=== PATIENT | female | born 1975 | race Caucasian/White ===

== ENCOUNTER 2016-04-27 15:55 | Emergency (ER) | payer MEDICAID ==
[2016-04-27] MEDS ORDERED: SODIUM CHLORIDE 0.9% 1,000 ML IV ONE (16:10)
[2016-04-27] MEDS ORDERED: ONDANSETRON 4 MG/2 ML VIAL IVP STA (16:50)
[2016-04-27] MEDS ORDERED: ONDANSETRON 4 MG/2 ML VIAL ONE (16:55)
== END 2016-04-27 18:05 | disposition home or self-care (01) ==
DX: R11.2 Nausea with vomiting, unspecified (principal)

== ENCOUNTER 2016-11-30 08:00 | Outpatient (CLI) | payer MEDICAID ==
[2016-11-30 19:27] LABS: BASOPHILS # (AUTO) 0.1 10^3/uL (0.0-0.1); BASOPHILS % (AUTO) 0.7 %; EOSINOPHILS # (AUTO) 0.2 10^3/uL (0.0-0.7); EOSINOPHILS % (AUTO) 2.7 %; HCT - HEMATOCRIT 37.2 % (37.0-47.0); HGB - HEMOGLOBIN 12.5 g/dL (12.0-16.0); LYMPHOCYTES % (AUTO) 24.9 %; MEAN CORPUSCULAR HGB CONC 33.5 g/dL (32.0-36.0); MEAN CORPUSCULAR VOLUME 83.7 fL (81.0-99.0); MEAN PLATELET VOLUME 9.2 fL (7.9-10.8); MONOCYTES # (AUTO) 0.4 10^3/uL (0.0-1.0); NEUTROPHILS # (AUTO) 5.4 10^3/uL (1.5-6.6); NEUTROPHILS % (AUTO) 66.7 %; RED BLOOD COUNT 4.45 10^6/uL (4.20-5.40); RED CELL DISTRIBUTION WIDTH 14.5 % (12.0-15.0); UNCORRECTED WHITE BLOOD COUNT 8.1 x10^3/uL; WHITE BLOOD COUNT 8.1 x10^3/uL (4.8-10.8)
[2016-11-30 19:49] LABS: ALBUMIN/GLOBULIN RATIO 1.3 (1.0-2.2); BILIRUBIN,TOTAL 0.2 mg/dL (0.2-1.0); BUN - BLOOD UREA NITROGEN 13 mg/dL (6-20); CALCIUM 8.5 mg/dL (8.5-10.3); CARBON DIOXIDE - CO2 26 mmol/L (21-32); CHLORIDE 106 mmol/L (101-111); CHOL/HDL RATIO 3.3 (<4.4); CHOLESTEROL 178 mg/dL; CREATININE 0.8 mg/dL (0.4-1.0); GFR - MDRD 80 (>89); GLUCOSE 101 mg/dL (70-100); HDL CHOLESTEROL 54 mg/dL; LDL/HDL RATIO 1.6 (<4.4); POTASSIUM 3.8 mmol/L (3.5-5.0); SODIUM 139 mmol/L (135-145); TOTAL PROTEIN 6.8 g/dL (6.7-8.2); TRIGLYCERIDES 180 mg/dL; VLDL CHOLESTEROL 36 mg/dL
== END 2016-11-30 08:01 | disposition home or self-care (01) ==
LOC: LAB.N 08:00
PROVIDERS: ATTEND Family Medicine
DX: F31.5 Bipolar disorder, current episode depressed, severe, with psychotic features (principal); Z51.81 Encounter for therapeutic drug level monitoring
CPT/HCPCS: 36415; 80053; 80061; 84443; 85025

== ENCOUNTER 2017-05-11 20:29 | Emergency (ER) | payer MEDICAID ==
--- NOTE | 2017-05-11 20:39 | ED Physician Documentation ---
PD HPI LOWER EXT INJURY - Stated complaint Stated Complaint: R BIG TOE INJ - Chief complaint Chief Complaint: Ext Problem - History obtained from History obtained from: Patient - History of Present Illness PD HPI LOW EXT INJURY LOCATION: Right, Toe (great) Type of injury: Blunt / blow (dropped a large rock onto her great toe, with soft leather boots on.) Timing - onset: Today Timing - details: Abrupt onset Improved by: Rest Worsened by: Moving, Palpating Associated symptoms: Swelling. 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, Hysterectomy HEENT: Tonsil/Adenoidectomy - Present Medications Home Medications: Ambulatory Orders Medication Instructions Recorded Confirmed QUEtiapine [SEROquel] 200 mg PO ONCE 12/17/12 02/14/17 Cyclobenzaprine [Flexeril] 10 mg PO TID PRN #20 tablet 02/14/17 HYDROcod/ACETAM 5/325 [[place] 5/325] 1 - 2 ea PO Q6H PRN #15 tablet 02/14/17 - Allergies Allergies/Adverse Reactions: Allergies Allergy/AdvReac Type Severity Reaction Status Date / Time aspirin Allergy Mild Nausea Verified 05/11/17 20:34 Latex, Natural Rubber Allergy Mild Hives Verified 05/11/17 20:34 - Social History Does the pt smoke?: No Smoking Status: Never smoker Does the pt drink ETOH?: No Does the pt have substance abuse?: Yes - Immunizations Immunizations are current?: Yes - POLST Patient has POLST: No PD ED PE NORMAL - Vitals Vital signs reviewed: Yes - General General: Alert and oriented X 3, Well developed/nourished, Other (appears in pain due to toe injury) - Derm Derm: Normal color, Warm and dry - Extremities Extremities: Other (great toe with swelling and bruising at IP area. No blood under the nail. No laceration. She is able to flex and extend toe, but hurts. ) Results - Vitals Vitals: Vital Signs - 24 hr 05/11/17 22:54 Temperature 37.0 C Heart Rate 77 Respiratory 18 Rate Blood Pressure 136/75 H O2 Saturation 98 Oxygen O2 Source Room air - Rads (name of study) toe Radiology: Prelim report reviewed, EMP read contemporaneously (no fractures) PD MEDICAL DECISION MAKING - ED course Complexity details: reviewed results (no fractures), considered differential, d/ w patient Departure - Departure Disposition: Home, Self Care Clinical Impression: Toe contusion Qualifiers: Encounter type: initial encounter Toe: great toe Damage to nail status: without damage Laterality: right Qualified Code(s): S90.111A - Contusion of right great toe without damage to nail, initial encounter Condition: Stable Record reviewed to determine appropriate education?: Yes Instructions: ED Contusion Lower Ext Follow-Up: Anupam Ramirez MD [Primary Care Provider] - Comments: No fractures of the toe. The bruising will hurt for a few days though. Activity as able. Use Tylenol or ibuprofen if needed for pains. At the hydrocodone if needed just short-term. I would not anticipate needing it long. Discharge Date/Time: 05/11/17 22:57
[2017-05-11] MEDS ORDERED: IBUPROFEN 600 MG TABLET PO STA (20:43)
[2017-05-11] MEDS ORDERED: ACETAMINOPHEN 325 MG TABLET PO STA (20:43)
--- NOTE | 2017-05-11 22:43 | XRAY Report ---
EXAM: RIGHT TOE RADIOGRAPHY EXAM DATE: 05/11/2017 10:36 PM. CLINICAL HISTORY: Dropped large rock on great toe. Right great toe pain. COMPARISON: None. TECHNIQUE: 3 views. FINDINGS: Bones: Normal. No fracture or bone lesion. Joints: Normal. No subluxations. Soft Tissues: Normal. No soft tissue swelling. IMPRESSION: Normal toe radiography. [facility] Referring Provider Line: [phone] SITE ID: [id number]
[2017-05-11] MEDS ORDERED: HYDROcod/ACET 5/325 Prepack 6 PO STA (22:47)
[2017-05-11 22:56] VITALS: BP 136/75
== END 2017-05-11 22:57 | disposition home or self-care (01) ==
LOC: ED 20:29
DX: S90.111A Contusion of right great toe without damage to nail, initial encounter (principal); W22.8XXA Striking against or struck by other objects, initial encounter
CPT/HCPCS: 73660; 99283; A9270

== ENCOUNTER 2017-07-06 20:38 | Emergency (ER) | payer SELFPAY ==
[2017-07-06 20:50] VITALS: BP 141/90
[2017-07-06] MEDS ORDERED: HYDROcod/ACETAM 5/325 MG TABLET PO STA (21:01)
--- NOTE | 2017-07-06 21:05 | ED Physician Documentation ---
PD HPI UPPER EXT INJURY - Stated complaint Stated Complaint: L ARM PX - Chief complaint Chief Complaint: Ext Problem - History obtained from History obtained from: Patient - History of Present Illness Location: Left, Shoulder Type of injury: Other (Right-handed woman who in January got a flu shot and it was sore for a few days and ever since then has had increasing pain around the left shoulder girdle and severely limited range of motion. 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 HEENT: Tonsil/Adenoidectomy - Present Medications Home Medications: Ambulatory Orders Medication Instructions Recorded Confirmed QUEtiapine [SEROquel] 200 mg PO ONCE 12/17/12 02/14/17 HYDROcod/ACETAM 5/325 [[place] 5/325] 1 - 2 ea PO Q6H PRN #15 tablet 07/06/17 - Allergies Allergies/Adverse Reactions: Allergies Allergy/AdvReac Type Severity Reaction Status Date / Time aspirin Allergy Mild Nausea Verified 05/11/17 20:34 Latex, Natural Rubber Allergy Mild Hives Verified 05/11/17 20:34 - Social History Does the pt smoke?: No Smoking Status: Never smoker Does the pt drink ETOH?: No Does the pt have substance abuse?: Yes - Immunizations Immunizations are current?: Yes - POLST Patient has POLST: No PD ED PE NORMAL - Vitals Vital signs reviewed: Yes - General General: Alert and oriented X 3, No acute distress - Neck Neck: Supple, no meningeal sign, No bony TTP - Extremities Extremities: Other (Basically the entirety of the left shoulder is tender, she is unable to abduct at all but I am able to get her up to maybe 45 passively. Normal plush dresser strength, thumb extension, interossei strength, and sensation is symmetric throughout the arms.) - Neuro Neuro: Alert and oriented X 3, Normal speech Results - Vitals Vitals: Vital Signs - 24 hr 07/06/17 20:40 Temperature 36.3 C L Heart Rate 80 Respiratory 20 Rate Blood Pressure 141/90 H O2 Saturation 99 Oxygen O2 Source Room air - Rads (name of study) L shoulder 3v Radiology: EMP read contemporaneously (Normal) Departure - Departure Disposition: 01 Home, Self Care Clinical Impression: Shoulder pain Qualifiers: Chronicity: acute Laterality: left Qualified Code(s): M25.512 - Pain in left shoulder Condition: Good Record reviewed to determine appropriate education?: Yes Instructions: ED Torn Rotator Cuff Prescriptions: HYDROcod/ACETAM 5/325 [[place] 5/325] 1 - 2 ea PO Q6H PRN #15 tablet PRN Reason: Pain Comments: As discussed, some of your findings suggest a rotator cuff issue, others might be a pinched nerve in your neck. Talk with your doctor about follow-up testing for this. Return if worse. Do not drink or drive while taking narcotic pain medication. Note that many narcotic pain relievers also contain Tylenol/acetaminophen. Please ensure that your total dose of acetaminophen from all sources does not exceed 3 g (3000 mg) per day. You may get constipated while on this medication. Take a stool softener such as Colace twice a day while you are on it. Also add an [id number] laxative such as senna or MiraLAX on any day that you do not have a bowel movement. If you received a narcotic pain medication or sedative while in the emergency department, do not drive for the next 24 hours. Your blood pressure was elevated today on check into the emergency department. This does not mean that you have hypertension, it is a common phenomenon to come to the emergency department and have elevated blood pressure. I recommend that you see your primary care physician within the week to have it rechecked when you are feeling better.
--- NOTE | 2017-07-06 21:29 | XRAY Report ---
EXAM: LEFT SHOULDER RADIOGRAPHY EXAM DATE: 07/06/2017 09:20 PM. CLINICAL HISTORY: Shoulder pain. COMPARISON: None. TECHNIQUE: 3 views. FINDINGS: Bones: Normal. No fracture or bone lesion. Joints: The glenohumeral and acromioclavicular joints are normal. Soft tissues: The visualized hemithorax is unremarkable. No soft tissue swelling. IMPRESSION: Normal shoulder radiography. [facility] Referring Provider Line: [phone] SITE ID: [id number]
== END 2017-07-06 21:45 | disposition home or self-care (01) ==
LOC: ED 20:38
DX: M25.512 Pain in left shoulder (principal); F31.9 Bipolar disorder, unspecified
CPT/HCPCS: 73030; 99283; A9270

== ENCOUNTER 2017-09-02 08:10 | Outpatient (CLI) | payer MEDICAID | END 2017-09-02 08:11 | disposition critical access hospital (66) | LOC: EMS 08:10 | PROVIDERS: ATTEND Surgery | DX: R11.10 Vomiting, unspecified (principal); R19.7 Diarrhea, unspecified; R42 Dizziness and giddiness | CPT/HCPCS: A0425; A0429 ==

== ENCOUNTER 2017-09-02 08:17 | Emergency (ER) | payer MEDICAID ==
[2017-09-02] MEDS ORDERED: SODIUM CHLORIDE 0.9% 1,000 ML IV ONE (08:23)
[2017-09-02] MEDS ORDERED: ONDANSETRON 4 MG/2 ML VIAL IVP STA (08:52)
[2017-09-02] MEDS ORDERED: HYOSCYAMINE SL 0.125 MG TABLET SL STA (08:52)
--- NOTE | 2017-09-02 08:55 | ED Physician Documentation ---
PD HPI NVD - Stated complaint Stated Complaint: V/D - Chief complaint Chief Complaint: Abd Pain - History obtained from History obtained from: Patient - History of Present Illness Timing - onset: How many hours ago (6) Timing - duration: Hours (6) Timing - details: Abrupt onset Pain level max: 6 Pain level now: 5 Associated symptoms: Abdominal pain (crampy, diffuse). No: Fever, Chest pain, Hematemesis, Melena, Hematochezia Contributing factors: Bad food (possible bad milk?). No: Sick contact, Travel, Recent antibiotics, Alcohol use, Anticoagulated, Diabetes Improved by: Other (nothing) Worsened by: Other ("everything") Similar symptoms before: Has not had sx before Recently seen: Not recently seen Review of Systems Constitutional: denies: Fever, Chills Ears: denies: Ear pain Nose: denies: Rhinorrhea / runny nose, Congestion : denies: Now EGA Skin: denies: Rash Musculoskeletal: denies: Neck pain, Back pain Neurologic: denies: Headache PD PAST MEDICAL HISTORY - Past Medical History Past Medical History: Yes Endocrine/Autoimmune: None Psych: Bipolar disorder, ADD/ADHD Musculoskeletal: Fatigue, Chronic back pain - Past Surgical History Past Surgical History: Yes General: Cholecystectomy, 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, Hysterectomy HEENT: Tonsil/Adenoidectomy - Present Medications Home Medications: Ambulatory Orders Medication Instructions Recorded Confirmed QUEtiapine [SEROquel] 200 mg PO ONCE 12/17/12 09/02/17 Ondansetron Odt [Zofran] 4 mg TL Q6H PRN #10 tablet 09/02/17 Promethazine [Phenergan] 25 mg PO Q6H PRN #10 tab 09/02/17 - Allergies Allergies/Adverse Reactions: Allergies Allergy/AdvReac Type Severity Reaction Status Date / Time aspirin Allergy Mild Nausea Verified 09/02/17 08:55 Latex, Natural Rubber Allergy Mild Hives Verified 09/02/17 08:55 - Social History Does the pt smoke?: No Smoking Status: Never smoker Does the pt drink ETOH?: No Does the pt have substance abuse?: Yes - Immunizations Immunizations are current?: Yes - POLST Patient has POLST: No PD ED PE NORMAL - Vitals Vital signs reviewed: Yes - General General: Alert and oriented X 3, No acute distress - HEENT HEENT: Moist mucous membranes, Pharynx benign - Neck Neck: Supple, no meningeal sign - Cardiac Cardiac: RRR, Strong equal pulses - Respiratory Respiratory: No respiratory distress, Clear bilaterally - Abdomen Abdomen: Soft, Other (mild diffuse TTP without peritoneal signs.) - Derm Derm: Warm and dry - Neuro Neuro: Alert and oriented X 3 - Psych Psych: Normal mood, Normal affect Results - Vitals Vitals: Oxygen O2 Source Room air - Labs Labs: Laboratory Tests 09/02/17 09/02/17 09/02/17 09:30 09:30 09:30 WBC 10.0 RBC 4.55 Hgb 12.6 Hct 37.4 MCV 82.2 MCH 27.8 MCHC 33.8 RDW 14.7 Plt Count 222 MPV 7.6 L Neut # 9.0 H Lymph # 0.6 L [place] # 0.4 Eos # 0.0 Baso # 0.0 Absolute Nucleated RBC 0.00 Nucleated RBC % 0.0 Sodium 139 Potassium 3.7 Chloride 105 Carbon Dioxide 25 Anion Gap 9.0 BUN 15 Creatinine 0.8 Estimated GFR (MDRD) 79 L Glucose 117 H Calcium 8.5 Total Bilirubin 0.7 AST 27 ALT 21 Alkaline Phosphatase 146 H Total Protein 7.1 Albumin 3.8 Globulin 3.3 Albumin/Globulin Ratio 1.2 Lipase 17 L Serum HCG, Qual NEGATIVE Urine Color Urine Clarity Urine pH Ur Specific [place] Urine Protein Urine Glucose (UA) Urine Ketones Urine Occult Blood Urine Nitrite Urine Bilirubin Urine Urobilinogen Ur Leukocyte Esterase Ur Microscopic Review Urine Culture Comments 09/02/17 10:35 WBC RBC Hgb Hct MCV MCH MCHC RDW Plt Count MPV Neut # Lymph # [place] # Eos # Baso # Absolute Nucleated RBC Nucleated RBC % Sodium Potassium Chloride Carbon Dioxide Anion Gap BUN Creatinine Estimated GFR (MDRD) Glucose Calcium Total Bilirubin AST ALT Alkaline Phosphatase Total Protein Albumin Globulin Albumin/Globulin Ratio Lipase Serum HCG, Qual Urine Color YELLOW Urine Clarity CLEAR Urine pH 7.5 Ur Specific [place] 1.010 Urine Protein NEGATIVE Urine Glucose (UA) NEGATIVE Urine Ketones 15 H Urine Occult Blood NEGATIVE Urine Nitrite NEGATIVE Urine Bilirubin NEGATIVE Urine Urobilinogen 0.2 (NORMAL) Ur Leukocyte Esterase NEGATIVE Ur Microscopic Review NOT INDICATED Urine Culture Comments NOT INDICATED PD MEDICAL DECISION MAKING - ED course Complexity details: reviewed results, re-evaluated patient, considered differential, d/w patient ED course: Patient is a 41-year-old female who presents to the emergency department with apparent gastroenteritis vs food poisoning. Patient was given IV fluids as well as antiemetics. She felt significantly improved and is able to tolerate p.o. Will place her on antiemetics for home and follow-up closely with her doctor. She is well-appearing, nontoxic. No significant laboratory abnormalities. Abdomen is soft, nontender nondistended on serial examination. Patient counseled regarding signs and symptoms for which I believe and urgent re- evaluation would be necessary. Patient with good understanding of and agreement to plan and is comfortable going home at this time This document was made in part using voice recognition software. While efforts are made to proofread this document, sound alike and grammatical errors may occur. Departure - Departure Disposition: 01 Home, Self Care Clinical Impression: Viral gastroenteritis Condition: Good Instructions: ED Gastroenteritis Viral Follow-Up: your,doctor in 3 days if not better [Other] Prescriptions: Ondansetron Odt [Zofran] 4 mg TL Q6H PRN #10 tablet PRN Reason: Nausea / Vomiting Promethazine [Phenergan] 25 mg PO Q6H PRN #10 tab PRN Reason: Nausea / Vomiting Comments: Return if you worsen. Rest today. Discharge Date/Time: 09/02/17 12:14
[2017-09-02 09:42] LABS: BASOPHILS % (AUTO) 0.3 %; EOSINOPHILS % (AUTO) 0.2 %; HGB - HEMOGLOBIN 12.6 g/dL (12.0-16.0); LYMPHOCYTES # (AUTO) 0.6 10^3/uL (1.5-3.5); LYMPHOCYTES % (AUTO) 5.7 %; MEAN CORPUSCULAR HEMOGLOBIN 27.8 pg (27.0-31.0); MEAN CORPUSCULAR HGB CONC 33.8 g/dL (32.0-36.0); MEAN CORPUSCULAR VOLUME 82.2 fL (81.0-99.0); MEAN PLATELET VOLUME 7.6 fL (7.9-10.8); MONOCYTES # (AUTO) 0.4 10^3/uL (0.0-1.0); NEUTROPHILS % (AUTO) 89.8 %; PLT - PLATELET COUNT 222 10^3/uL (130-450); RED BLOOD COUNT 4.55 10^6/uL (4.20-5.40); RED CELL DISTRIBUTION WIDTH 14.7 % (12.0-15.0)
[2017-09-02 09:56] LABS: ALBUMIN 3.8 g/dL (3.2-5.5); ALBUMIN/GLOBULIN RATIO 1.2 (1.0-2.2); BILIRUBIN,TOTAL 0.7 mg/dL (0.2-1.0); CALCIUM 8.5 mg/dL (8.5-10.3); CREATININE 0.8 mg/dL (0.4-1.0); TOTAL PROTEIN 7.1 g/dL (6.7-8.2)
[2017-09-02 10:06] LABS: HCG,QUALITATIVE BLOOD NEGATIVE
[2017-09-02 11:19] LABS: BILIRUBIN,URINE NEGATIVE (NEGATIVE); GLUCOSE, URINE (UA) NEGATIVE (NEGATIVE); KETONES,URINE (UA) 15 mg/dL (NEGATIVE); LEUKOCYTE ESTERASE, URINE NEGATIVE (NEGATIVE); NITRITE,URINE NEGATIVE (NEGATIVE); OCCULT BLOOD,URINE NEGATIVE (NEGATIVE); PH,URINE 7.5 PH (5.0-7.5); PROTEIN,URINE NEGATIVE (NEGATIVE); UROBILINOGEN,URINE 0.2 (NORMAL) E.U./dL (NORMAL)
[2017-09-02 11:20] LABS: CLARITY,URINE CLEAR (CLEAR)
[2017-09-02] MEDS ORDERED: PROMETHAZINE INJ 25 MG in SODIUM CHLORIDE 0.9% 50 ML IV STA (11:24)
[2017-09-02] MEDS ORDERED: PROMETHAZINE 25 MG/1 ML VIAL IM STA (11:31)
[2017-09-02 12:14] VITALS: BP 163/93
== END 2017-09-02 12:14 | disposition home or self-care (01) ==
LOC: EDBD → EDUNIT# → ED 08:17
DX: A08.4 Viral intestinal infection, unspecified (principal)
CPT/HCPCS: 36415; 80053; 81003; 83690; 84703; 85025; 96361; 96372; 96374; 99283; 99284; A9270; J7040; 81001; 87086

== ENCOUNTER 2018-01-28 19:59 | Emergency (ER) | payer MEDICAID ==
[2018-01-28 20:13] VITALS: BP 138/75
[2018-01-28] MEDS ORDERED: METOCLOPRAMIDE 10 MG/2 ML VIAL IVP STA (21:20)
[2018-01-28] MEDS ORDERED: SODIUM CHLORIDE 0.9% 1,000 ML IV ONE (21:20)
[2018-01-28] MEDS ORDERED: KETOROLAC 60 MG/2 ML VIAL IVP STA (21:20)
[2018-01-28 22:07] LABS: ALBUMIN 3.7 g/dL (3.2-5.5); ALBUMIN/GLOBULIN RATIO 1.3 (1.0-2.2); BILIRUBIN,TOTAL 0.4 mg/dL (0.2-1.0); CALCIUM 8.8 mg/dL (8.5-10.3); CREATININE 0.9 mg/dL (0.4-1.0); TOTAL PROTEIN 6.6 g/dL (6.7-8.2)
--- NOTE | 2018-01-28 22:27 | ED Physician Documentation ---
History of Present Illness - Stated complaint Stated Complaint: N/V/D/VICTORIA - Chief complaint Chief Complaint: Neuro - Additonal information Additional information: 42-year-old female presents the emergency department with a headache which start ed today while at work. The patient reports having a history of migrainous headaches and this is similar to prior episodes but the patient did not take her normal Imitrex. The patient denies fevers, radiation into her neck, neck stiffness, motor weakness or sensory changes. The patient also reports having nausea, vomiting and diarrhea today. The patient denies any focal area of abdominal pain. No blood in the vomit or stools. No recent antibiotic usage or recent travel or hospitalization. Symptoms are described as moderate. No other associated symptoms. No relieving factors Review of Systems Constitutional: denies: Fever, Chills Eyes: denies: Discharge Ears: denies: Ear pain Nose: denies: Congestion Throat: denies: Sore throat Respiratory: denies: Dyspnea, Cough GI: reports: Nausea, Vomiting, Diarrhea. denies: Abdominal Pain : denies: Dysuria Neurologic: reports: Headache. 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 HEENT: Tonsil/Adenoidectomy - Present Medications Home Medications: Ambulatory Orders Medication Instructions Recorded Confirmed QUEtiapine [SEROquel] 200 mg PO ONCE 12/17/12 09/02/17 Ondansetron Odt [Zofran] 4 mg TL Q6H PRN #10 tablet 09/02/17 Promethazine [Phenergan] 25 mg PO Q6H PRN #10 tab 09/02/17 - Allergies Allergies/Adverse Reactions: Allergies Allergy/AdvReac Type Severity Reaction Status Date / Time aspirin Allergy Mild Nausea Verified 01/28/18 20:13 Latex, Natural Rubber Allergy Mild Hives Verified 01/28/18 20:13 - Social History Does the pt smoke?: No Smoking Status: Never smoker Does the pt drink ETOH?: No Does the pt have substance abuse?: Yes - Immunizations Immunizations are current?: Yes - POLST Patient has POLST: No PD ED PE NORMAL - General General: Alert and oriented X 3, No acute distress - HEENT HEENT: Atraumatic, PERRL, EOMI, Ears normal - Neck Neck: Supple, no meningeal sign - Cardiac Cardiac: RRR, Strong equal pulses - Respiratory Respiratory: No respiratory distress, Clear bilaterally - Abdomen Abdomen: Soft, Non tender, Non distended - Derm Derm: Normal color - Extremities Extremities: No deformity, Normal ROM s pain - Neuro Neuro: Alert and oriented X 3, 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, No motor deficit, No sensory deficit, Normal speech - Psych Psych: Normal mood Results - Vitals Vitals: Vital Signs - 24 hr 01/28/18 20:09 Temperature 36.6 C Heart Rate 75 Respiratory 18 Rate Blood Pressure 138/75 H O2 Saturation 98 Oxygen O2 Source Room air - Labs Labs: Laboratory Tests 01/28/18 21:50 Sodium 138 Potassium 3.6 Chloride 103 Carbon Dioxide 26 Anion Gap 9.0 BUN 16 Creatinine 0.9 Estimated GFR (MDRD) 69 L Glucose 116 H Calcium 8.8 Total Bilirubin 0.4 AST 22 ALT 18 Alkaline Phosphatase 121 Total Protein 6.6 L Albumin 3.7 Globulin 2.9 Albumin/Globulin Ratio 1.3 Lipase 35 PD MEDICAL DECISION MAKING - ED course ED course: On reevaluation the patient resting comfortably and her headache has resolved. A CT was ordered to further evaluate the patient's acute headache, on reevaluation the patient is now refusing the CT scan and is requesting discharge home. The patient is scheduled to follow-up with her primary care. The patient is of sound mind and capable of making this decision. I recommended that the patient's symptoms return or she is having worsening symptoms that she should return to the emergency department for reevaluation. The patient understands and agrees. Departure - Departure Disposition: 01 Home, Self Care Clinical Impression: Vomiting and diarrhea Headache Qualifiers: Headache type: unspecified Headache chronicity pattern: unspecified pattern Intractability: not intractable Qualified Code(s): R51 - Headache Condition: Good Follow-Up: Anupam Ramirez MD [Primary Care Provider] - Within 1 week Comments: Please follow-up with primary care for further workup and evaluation of your headache. Please return to the emergency department for any worsening or any concerns.
== END 2018-01-28 22:41 | disposition home or self-care (01) ==
LOC: ED 19:59
DX: R51 Headache (principal); R11.2 Nausea with vomiting, unspecified; R19.7 Diarrhea, unspecified
CPT/HCPCS: 36415; 80053; 83690; 96361; 96374; 96375; 99283; J2765

== ENCOUNTER 2018-03-24 01:01 | Emergency (ER) | payer MEDICAID ==
[2018-03-24] MEDS ORDERED: BUFFERED LIDOCAINE 10 ML SYRINGE SUBQ STA (01:53)
[2018-03-24] MEDS ORDERED: BUFFERED LIDOCAINE 10 ML SYRINGE ONE (01:56)
[2018-03-24] MEDS ORDERED: cephALEXin 250 MG CAPSULE PO STA (02:38)
--- NOTE | 2018-03-24 02:41 | ED Physician Documentation ---
PD HPI LOWER EXT INJURY - Stated complaint Stated Complaint: R TOE PX - Chief complaint Chief Complaint: Ext Problem - History obtained from History obtained from: Patient - History of Present Illness PD HPI LOW EXT INJURY LOCATION: Right, Toe Type of injury: Other (ingrown toenail) Timing - onset: Yesterday Timing - details: Constant Worsened by: Moving, Palpating Associated symptoms: Swelling, Discolored Similar symptoms before: Has not had sx before - Additional information Additional information: The patient is a 42-year-old female who presents with pain and swelling of her right great toe adjacent to the toenail. She reports that a few months ago she stubbed her toe, causing a subungual hematoma and growth of a new toenail. The new toenail has become ingrown, causing increased pain and swelling of her toe since yesterday. She has no history of similar symptoms in the past. 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 HEENT: Tonsil/Adenoidectomy - Present Medications Home Medications: Ambulatory Orders Medication Instructions Recorded Confirmed QUEtiapine [SEROquel] 200 mg PO ONCE 12/17/12 09/02/17 Ondansetron Odt [Zofran] 4 mg TL Q6H PRN #10 tablet 09/02/17 Promethazine [Phenergan] 25 mg PO Q6H PRN #10 tab 09/02/17 Hydrocodone/Acetaminophen 1 - 2 each PO Q6H PRN #10 tablet 03/24/18 [Hydrocodon-Acetaminophen 5-325] cephALEXin [Cephalexin] 500 mg PO TID #15 tablet 03/24/18 - Allergies Allergies/Adverse Reactions: Allergies Allergy/AdvReac Type Severity Reaction Status Date / Time aspirin Allergy Mild Nausea Verified 03/24/18 01:13 Latex, Natural Rubber Allergy Mild Hives Verified 03/24/18 01:13 - Social History Does the pt smoke?: No Smoking Status: Never smoker Does the pt drink ETOH?: No Does the pt have substance abuse?: No - Immunizations Immunizations are current?: Yes - POLST Patient has POLST: No PD ED PE NORMAL - Vitals Vital signs reviewed: Yes (normal) - General General: Alert and oriented X 3, Well developed/nourished - HEENT HEENT: Atraumatic - Respiratory Respiratory: No respiratory distress - Derm Derm: No rash - Extremities Extremities: Other (There is swelling and erythema of the right great toe at the lateral side adjacent to the toenail. There is associated exquisite tenderness to palpation. Distal neurovascular is intact.) - Neuro Neuro: Alert and oriented X 3, No motor deficit, No sensory deficit Results - Vitals Vitals: Oxygen O2 Source Room air Procedures - Abscess I&D (location) right great toe Preparation: Alcohol, Lidocaine 1% (digital block) Incision: Incised with scalpel, Purulent drainage, Other (Ingrown portion of toenail excised.) Other: Pt tolerated well, Dressing applied, Antibiotic prescribed PD MEDICAL DECISION MAKING - ED course Complexity details: considered differential, d/w patient ED course: The patient's presentation is significant for ingrown toenail with localized cellulitis with small abscess. Treatment in the emergency department included excision of the ingrown toenail after digital block using 1% lidocaine. The patient tolerated the procedure well. Antibiotic ointment and gauze dressing was applied. Cephalexin 500 mg is administered orally. She is being discharged with prescription for cephalexin and for Vicodin, 10 tablets. I discussed with her the expected course of healing, antibiotic treatment and outpatient follow- up, as well as potentially worrisome signs or symptoms that should prompt reevaluation in the emergency department. Departure - Departure Disposition: 01 Home, Self Care Clinical Impression: Ingrown toenail of right foot with infection Condition: Stable Instructions: ED Ingrown Toenail Excised Follow-Up: Anupam Ramirez MD [Credentialed Staff Provider] - Prescriptions: cephALEXin [Cephalexin] 500 mg PO TID #15 tablet Hydrocodone/Acetaminophen [Hydrocodon-Acetaminophen 5-325] 1 - 2 each PO Q6H PRN #10 tablet PRN Reason: pain Comments: Keep your right foot elevated as much of the time as possible. Take cephalexin 3 times daily as prescribed. You can use ibuprofen, up to 800 mg 3 times daily for its anti-inflammatory effect. You can use Vicodin as prescribed if needed for pain. Follow-up with your primary physician within 2 weeks. Call to schedule an appointment. Return to the emergency department if you develop increasing pain or swelling of your toe, or otherwise worsening symptoms. Forms: Activity restrictions Discharge Date/Time: 03/24/18 02:52
[2018-03-24 02:52] VITALS: BP 144/96
== END 2018-03-24 02:52 | disposition home or self-care (01) ==
LOC: ED 01:01
DX: L60.0 Ingrowing nail (principal)
CPT/HCPCS: 10060; 11730; 99283; A9270

== ENCOUNTER 2018-05-29 16:30 | Outpatient (CLI) | payer MEDICAID | END 2018-05-29 23:59 | disposition home or self-care (01) | LOC: LAB.R 16:30 | PROVIDERS: ATTEND Podiatrist | DX: L03.031 Cellulitis of right toe (principal) | CPT/HCPCS: 87070; 87181; 87205 ==

== ENCOUNTER 2018-12-24 11:31 | Outpatient (CLI) | payer MEDICAID ==
[2018-12-24 18:54] LABS: BASOPHILS % (AUTO) 0.4 %; EOSINOPHILS # (AUTO) 0.2 10^3/uL (0.0-0.7); EOSINOPHILS % (AUTO) 2.3 %; HGB - HEMOGLOBIN 12.1 g/dL (12.0-16.0); LYMPHOCYTES # (AUTO) 1.8 10^3/uL (1.5-3.5); LYMPHOCYTES % (AUTO) 22.8 %; MEAN CORPUSCULAR HGB CONC 31.1 g/dL (32.0-36.0); MEAN CORPUSCULAR VOLUME 86.8 fL (81.0-99.0); MEAN PLATELET VOLUME 11.1 fL (7.9-10.8); MONOCYTES # (AUTO) 0.5 10^3/uL (0.0-1.0); MONOCYTES % (AUTO) 6.4 %; NEUTROPHILS # (AUTO) 5.4 10^3/uL (1.5-6.6); NEUTROPHILS % (AUTO) 67.5 %; PLT - PLATELET COUNT 262 10^3/uL (130-450); RED BLOOD COUNT 4.48 10^6/uL (4.20-5.40); RED CELL DISTRIBUTION WIDTH 14.4 % (12.0-15.0)
[2018-12-24 19:14] LABS: BUN - BLOOD UREA NITROGEN 11 mg/dL (6-20); CALCIUM 9.3 mg/dL (8.5-10.3); CARBON DIOXIDE - CO2 28 mmol/L (21-32); CHLORIDE 102 mmol/L (101-111); CHOL/HDL RATIO 3.5 (<4.4); CHOLESTEROL 202 mg/dL; CREATININE 0.8 mg/dL (0.4-1.0); GFR - MDRD 79 (>89); GLUCOSE 97 mg/dL (70-100); HDL CHOLESTEROL 57 mg/dL; LDL CHOLESTEROL,CALCULATED 114 mg/dL; SODIUM 141 mmol/L (135-145); VLDL CHOLESTEROL 31 mg/dL
== END 2018-12-24 11:32 | disposition home or self-care (01) ==
LOC: LAB.N 11:31
PROVIDERS: ATTEND Physician Assistant Medical
DX: F33.2 Major depressive disorder, recurrent severe without psychotic features (principal); E78.1 Pure hyperglyceridemia; E66.9 Obesity, unspecified; F31.9 Bipolar disorder, unspecified
CPT/HCPCS: 36415; 80048; 80061; 83721; 84443; 85025

== ENCOUNTER 2020-02-20 20:12 | Emergency (ER) | payer MEDICAID ==
[2020-02-20 20:40] VITALS: BP 131/101
--- NOTE | 2020-02-20 20:45 | ED Physician Documentation ---
PD HPI LOWER EXT INJURY - Stated complaint Stated Complaint: RT ANKLE PX,LT FINGER PX - Chief complaint Chief Complaint: Trauma Ext - History obtained from History obtained from: Patient - Additional information Additional information: She stepped wrong about a week ago and heard a pop in the area of the right Achilles. She is able to walk and bear weight but with difficulty and sometimes when she steps wrong and still hurts quite a bit. Of note she also complains of left pinky pain for 4 months since her dog tripped her. 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, Hysterectomy HEENT: Tonsil/Adenoidectomy - Present Medications Home Medications: Ambulatory Orders Medication Instructions Recorded Confirmed QUEtiapine [SEROquel] 200 mg PO ONCE 12/17/12 09/02/17 Ondansetron Odt [Zofran] 4 mg TL Q6H PRN #10 tablet 09/02/17 Promethazine [Phenergan] 25 mg PO Q6H PRN #10 tab 09/02/17 Hydrocodone/Acetaminophen 1 - 2 each PO Q6H PRN #10 tablet 03/24/18 [Hydrocodon-Acetaminophen 5-325] cephALEXin [Cephalexin] 500 mg PO TID #15 tablet 03/24/18 - Allergies Allergies/Adverse Reactions: Allergies Allergy/AdvReac Type Severity Reaction Status Date / Time aspirin Allergy Mild Nausea Verified 02/20/20 20:40 Latex, Natural Rubber Allergy Mild Hives Verified 02/20/20 20:40 - Social History Does the pt smoke?: No Smoking Status: Never smoker Does the pt drink ETOH?: No Does the pt have substance abuse?: No - Immunizations Immunizations are current?: Yes - POLST Patient has POLST: No PD ED PE NORMAL - Vitals Vital signs reviewed: Yes - General General: Alert and oriented X 3, No acute distress - Extremities Extremities: Other (Mild tenderness of the left PIP but full range of motion. She is tender over the right Achilles, but Porter's test is normal.) - Neuro Neuro: Alert and oriented X 3, Normal speech Results - Vitals Vitals: Vital Signs - 24 hr 02/20/20 20:20 Temperature 36.0 C L Heart Rate 91 Respiratory 16 Rate Blood Pressure 131/101 H O2 Saturation 98 Oxygen O2 Source Room air PD MEDICAL DECISION MAKING - ED course ED course: She appears to have a partial Achilles strain or tear. Not complete. She is able to fire the Achilles and has a normal Porter's test. She is placed in a boot and orthopedic follow-up was advised. 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 Departure - Departure Disposition: Home, Self Care Clinical Impression: Strain of right Achilles tendon Qualifiers: Encounter type: initial encounter Qualified Code(s): S86.011A - Strain of right Achilles tendon, initial encounter Condition: Good Record reviewed to determine appropriate education?: Yes Instructions: ED Tendon Rupture Achilles Follow-Up: [facility] [Provider Group] Comments: Keep the boot on when up and around, you do not need to wear it while sleeping etc. Follow-up with the orthopedic surgeons within the week, call Saturday for an appointment.
== END 2020-02-20 21:02 | disposition home or self-care (01) ==
LOC: ED 20:12
DX: S86.011A Strain of right Achilles tendon, initial encounter (principal); X50.1XXA Overexertion from prolonged static or awkward postures, initial encounter; M79.645 Pain in left finger(s)
CPT/HCPCS: 99282

== ENCOUNTER 2020-04-22 19:11 | Emergency (ER) | payer MEDICAID ==
[2020-04-22 19:18] VITALS: BP 170/97
[2020-04-22] MEDS ORDERED: ACETAMINOPHEN 325 MG TABLET PO STA (20:28)
[2020-04-22] MEDS ORDERED: ONDANSETRON 4 MG/2 ML VIAL IVP PRN (20:44)
[2020-04-22] MEDS ORDERED: HYDROmorphone 0.5 MG/0.5 ML SYRINGE IVP PRN (20:44)
[2020-04-22] MEDS ORDERED: PIPERACILLIN/TAZOBACTAM 3.375 GM in SODIUM CHLORIDE 0.9% MINIBAG 100 ML IV ONE (20:44)
[2020-04-22] MEDS ORDERED: ACETAMINOPHEN 325 MG TABLET PO PRN (20:44)
--- NOTE | 2020-04-22 20:44 | ED Physician Documentation ---
PD HPI UPPER EXT INJURY - Stated complaint Stated Complaint: LEFT HAND LAC - Chief complaint Chief Complaint: Wound - History obtained from History obtained from: Patient - History of Present Illness Location: Left Type of injury: Laceration Where injury occurred: Home Pain level max: 8 Pain level now: 7 Improved by: Rest Worsened by: Moving, Palpating Associated symptoms: No: Weakness, Numbness, Tingling, Swelling, Discolored - Additonal information Additional information: 44-year-old female presents to the emergency department stating that she cut the base of her left thumb with a knife at home while she was cutting onions. Worse with movement, better with rest. 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, Hysterectomy HEENT: Tonsil/Adenoidectomy - Present Medications Home Medications: Ambulatory Orders Medication Instructions Recorded Confirmed QUEtiapine [SEROquel] 200 mg PO ONCE 12/17/04/22/20 Ondansetron Odt [Zofran] 4 mg TL Q6H PRN #10 tablet 09/02/17 Promethazine [Phenergan] 25 mg PO Q6H PRN #10 tab 09/02/17 Hydrocodone/Acetaminophen 1 - 2 each PO Q6H PRN #10 tablet 03/24/18 [Hydrocodon-Acetaminophen 5-325] cephALEXin [Cephalexin] 500 mg PO TID #15 tablet 03/24/18 Amitriptyline [Elavil] 50 mg PO HS 04/22/20 04/22/20 - Allergies Allergies/Adverse Reactions: Allergies Allergy/AdvReac Type Severity Reaction Status Date / Time aspirin Allergy Mild Nausea Verified 02/20/20 20:40 Latex, Natural Rubber Allergy Mild Hives Verified 02/20/20 20:40 - Social History Does the pt smoke?: No Smoking Status: Never smoker Does the pt drink ETOH?: No Does the pt have substance abuse?: No - Immunizations Immunizations are current?: Yes - POLST Patient has POLST: No PD ED PE NORMAL - Vitals Vital signs reviewed: Yes - General General: Alert and oriented X 3, No acute distress - HEENT HEENT: Moist mucous membranes - Neck Neck: Supple, no meningeal sign - Derm Derm: Warm and dry - Extremities Extremities: Other (0.5 cm linear superficial abrasion to the L thumb.) - Neuro Neuro: Alert and oriented X 3 Results - Vitals Vitals: Vital Signs - 24 hr 04/22/20 19:16 Temperature 35.9 C L Heart Rate 97 Respiratory 20 Rate Blood Pressure 170/97 H O2 Saturation 97 Oxygen O2 Source Room air - Rads (name of study) L thumb xray Radiology: Prelim report reviewed, EMP read contemporaneously, See rad report (normal) Procedures - Laceration (location) L thumb Length in cm: 0.5 Wound type: Linear, Superficial Neurovascular status: Sensory intact, Motor intact, Vascular intact Tendon involvement: Tendon intact Wound Preparation: Irrigated copiously NS Skin layer closure: Dermabond Other: Patient tolerated well, No complications, Neurovascular intact PD MEDICAL DECISION MAKING - ED course Complexity details: considered differential, d/w patient ED course: 44-year-old female with a left thumb very superficial laceration. Edges are well approximated. No active bleeding. No evidence of underlying injury. Normal exam. Dermabond was applied to the area. We will have her follow-up with her doctor for further care. Tetanus up-to-date. Warnings of infection and instructions on wound care given at bedside. Also counseled on how to minimize scarring. Patient counseled regarding signs and symptoms for which I believe and urgent re-evaluation would be necessary. Patient with good understanding of and agreement to plan and is comfortable going home at this time This document was made in part using voice recognition software. While efforts are made to proofread this document, sound alike and grammatical errors may occur. Departure - Departure Disposition: 01 Home, Self Care Clinical Impression: Laceration Condition: Good Instructions: ED Laceration Ext Skin Glue Follow-Up: ANISHA SHAVER, MSN, OUTSIDE OPERATOR [Primary Care Provider] - Within 1 week Comments: Follow-up with your doctor in 1 week for wound check. Return if you worsen or notice redness, swelling or drainage from the wound. The glue will fall off on its own. Discharge Date/Time: 04/22/20 21:20
[2020-04-22] MEDS ORDERED: LACTATED RINGERS 1,000 ML IV SCH (21:00)
--- NOTE | 2020-04-22 21:37 | XRAY Report ---
PROCEDURE: Finger(s) LT INDICATIONS: laceration, pain TECHNIQUE: AP hand, 2 views of the left finger(s) acquired. COMPARISON: None. FINDINGS: Bones: No fractures or dislocations. No suspicious bony lesions. Soft tissues: No suspicious soft tissue calcifications. IMPRESSION: No definite fracture however follow-up radiographs in 10 days could be performed if the patient's sym ptoms do not improve to exclude occult fracture/assess for healing sclerosis. Reviewed by: Polo Grimes MD on 04/22/2020 9:35 PM PST Approved by: Polo Grimes MD on 04/22/2020 9:35 PM [facility] Station ID: [id number]
--- OUTSIDE RECORDS SUMMARY | 2020-04-27 01:47 | EXTERNAL MEDICAL SUMMARY RPT | Continuity of Care Document ---
:1975 Demographics Phone Unavailable Preferred Language Indonesian Marital Status Unknown Restoration Affiliation Unknown Race Unknown Ethnic Group Unknown Author Organization [place] Address [address] [place] [address] Phone Care Team Providers Name Role Phone SHAVER Unavailable Unavailable E LEARNING COORDINATOR Unavailable Unavailable Uriel Unavailable Unavailable Problems date description facility 2018-12-24 11:31 OBESITY, UNSPECIFIED [facility] 2018-12-24 11:31 PURE HYPERGLYCERIDEMIA [facility] 2018-12-24 11:31 BIPOLAR DISORDER, UNSPECIFIED 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 2020-02-20 20:12 PAIN IN LEFT FINGER(S) [facility] 2020-02-20 20:12 STRAIN OF RIGHT ACHILLES TENDON, [facility] INITIAL ENCOUNTER 2020-02-20 20:12 OVEREXERTION FROM PROLONGED [facility] STATIC OR [facility] 2020-02-26 00:00:00 TSH WITH REFLEX TO FT4 [facility] Primary Care [facility] 2020-02-26 00:00:00 Long-term (current) drug use [facility] Primary Care [facility] 2020-02-26 00:00:00 COMPREHENSIVE METABOLIC PANEL [facility] Primary Care [facility] 2020-02-26 00:00:00 LIPIDS SCREEN [facility] 2020-02-26 00:00:00 CBC W/Diff/Plt [facility] 2020-02-26 00:00:00 Other assisted (current) drug [facility] Primary Care therapy [facility] 2020-02-26 00:00:00 Health-related behavior [facility] Primary Care [facility] 2020-02-26 00:00:00 Tobacco use and exposure [facility] Primary Care [facility] 2020-02-26 00:00[facility] 2020-02-26 00:00:00 [facility] 2020-02-26 00:00:00 Details of drug misuse [facility] 2020-02-26 00:00:00 [facility] 2020-02-26 00:00:00 Tobacco smoking status AZIS mereyHe [facility] Primary Care [facility] 2020-02-26 00:00:00 [facility] 2020-02-26 00:00:00 [facility] 2020-02-29 00:00:00 Strain of right Achilles tendon, [facility] Primary Care initial encounter [facility] 2020-02-29 00:00:00 Strain of right Achilles tendon [facility] Primary Care [facility] 2020-02-29 00:00:00 [facility] 2020-02-29 00:00:00 [facility] 2020-02-29 00:00:00 [facility] 2020-02-29 00:00:00 Details of drug misuse behavior [facility] Primary Care [facility] 2020-02-29 00:00:00 [facility] 2020-02-29 00:00:00 Tobacco smoking status AZIS Liliana [facility] Primary Care [facility] 2020-02-29 00:00:00 Total score? [facility] 2020-02-29 00:00:00 [facility] 2020-03-28 00:00:00 [facility] 2020-03-28 00:00:00 [facility] 2020-03-28 00:00:00 Exercise [facility] [place] 2020-03-28 00:00:00 Details of drug misuse behavior [facility] [place] [facility] 2020-03-28 00:00:00 Alcohol use [facility] 2020-03-28 00:00:00 Tobacco smoking status NHIS [facility] [place] 2020-03-28 00:00:00 Former smoker [facility] 2020-04-20 10:00 STRAIN OF RIGHT ACHILLES TENDON, [facility] INITIAL ENCOUNTER Allergies date description facility NO KNOWN ENVIRONMENTAL ALLERGIES [facility] No Known Allergies [facility] NO ALLERGY INFORMATION ON FILE [facility] ADHESIVE [facility] ANASTROZOLE [facility] LATEX [facility] NO ALLERGY INFORMATION AVAILABLE [facility] AMOXICILLIN [facility] Latex, Natural Rubber [facility] dical Center aspirin [facility] AMOXICILLIN [facility] CEPHALEXIN [facility] CODEINE [facility] PENICILLINS [facility] STATINS [facility] NZAOWLH-OOT-TAH REDUCTASE INHIBITORS [facility] NO KNOWN ALLERGIES [facility] CODEINE [facility] CEFADROXIL [facility] Latex, Natural Rubber [facility] dical Center No Known Drug Allergies [facility] aspirin [facility] NO KNOWN ALLERGIES [facility] Social History date description facility 2020-02-26 00:00:00 Former [facility] [place] [place] [facility] date description facility 2020-02-29 00:00:00 Former [facility] date description facility 2020-03-28 00:00:00 Former [facility] Social History date description facility 2020-02-26 00:00:00 Former [facility] date description facility 2020-02-29 00:00:00 [facility] [place] date description facility 2020-03-28 00:00:00 [facility] date description facility [id number]
--- OUTSIDE RECORDS SUMMARY | 2020-04-27 01:48 | EXTERNAL MEDICAL SUMMARY RPT | Continuity of Care Document ---
:1975 Demographics Phone Unavailable Preferred Language Lao Marital Status Unknown Adventist Affiliation Unknown Race Unknown Ethnic Group Unknown Author Organization [place] Address [address] [place] [address] Phone Care Team Providers Name Role Phone GROUND CREW SUPERVISOR Unavailable Unavailable SHAVER Unavailable Unavailable Uriel Unavailable Unavailable Problems date description facility 2018-12-24 11:31 OBESITY, UNSPECIFIED [facility] 2018-12-24 11:31 PURE HYPERGLYCERIDEMIA [facility] 2018-12-24 11:31 BIPOLAR DISORDER, UNSPECIFIED [facility] 2018-12-24 11:31 MAJOR DEPRESSV DISORDER, [facility]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 STATIC OR [facility] 2020-02-26 00:00:00 TSH WITH REFLEX TO FT4 [facility] 2020-02-26 00:00:00 Long-term (current) drug use [facility] 2020-02-26 00:00:00 COMPREHENSIVE METABOLIC PANEL [facility] 2020-02-26 00:00:00 LIPIDS SCREEN [facility] 2020-02-26 00:00:00 CBC W/Diff/Plt [facility] 2020-02-26 00:00:00 Other nursing home (current) drug [facility] therapy [facility] 2020-02-26 00:00:00 Health-related behavior [facility] 2020-02-26 00:00:00 Tobacco use and exposure [facility] Primary Care [facility] 2020-02-26 00:00:00 [facility] 2020-02-26 00:00:00 [facility] 2020-02-26 00:00:00 Details of drug misuse [facility] 2020-02-26 00:00:00 [facility] 2020-02-26 00:00:00 Tobacco smoking status TXIS mereyHe [facility] Primary Care [facility] 2020-02-26 00:00:00 Total score? [facility] 2020-02-26 00:00:00 [facility] 2020-02-29 00:00:00 Strain of right Achilles tendon, [facility] Care initial encounter [facility] 2020-02-29 00:00:00 Strain of right Achilles tendon [facility] 2020-02-29 00:00:00 [facility] 2020-02-29 00:00:00 [facility] 2020-02-29 00:00:00 Exercise [facility] 2020-02-29 00:00:00 Details of drug misuse behavior [facility] Primary Care [facility] 2020-02-29 00:00:00 Alcohol use [facility] 2020-02-29 00:00:00 Tobacco smoking status TXIS Liliana [facility] Primary Care [facility] 2020-02-29 00:00:00 Total score? [facility] 2020-02-29 00:00:00 [facility] 2020-03-28 00:00:00 [facility] 2020-03-28 00:00:00 [facility] 2020-03-28 00:00:00 Exercise [facility] [place] [facility] 2020-03-28 00:00:00 Details of drug misuse behavior [facility] [place] [facility] 2020-03-28 00:00:00 Alcohol use [facility] [place] [facility] 2020-03-28 00:00:00 Tobacco smoking status NHIS [facility] [place] [facility] 2020-03-28 00:00:00 Former smoker [facility] [place] [facility] 2020-04-20 10:00 STRAIN OF RIGHT ACHILLES TENDON, [facility] INITIAL ENCOUNTER Allergies date description facility NO KNOWN ENVIRONMENTAL ALLERGIES [facility] No Known Allergies [facility] NO ALLERGY INFORMATION ON FILE [facility] ADHESIVE [facility] ANASTROZOLE [facility] LATEX [facility] NO ALLERGY INFORMATION AVAILABLE [facility] AMOXICILLIN [facility] Latex, Natural Rubber [facility] dical [facility] aspirin [facility] AMOXICILLIN [facility] CEPHALEXIN [facility] CODEINE [facility] PENICILLINS [facility] STATINS [facility] [id number] REDUCTASE INHIBITORS [facility] NO KNOWN ALLERGIES [facility] CODEINE [facility] CEFADROXIL [facility] Latex, Natural Rubber [facility] dical Center No Known Drug Allergies [facility] aspirin [facility] NO KNOWN ALLERGIES [facility] Social History date description facility 2020-02-26 00:00:00 [facility] [place] [facility] date description facility 2020-02-29 00:00:00 Former [facility]oker [facility] [place] [facility] date description facility 2020-03-28 00:00:00 Former [facility]oker [facility] [place] [facility] Social History date description facility 2020-02-26 00:00:00 Former [facility]oker [facility] [place] [facility] date description facility 2020-02-29 00:00:00 [facility] [place] [facility] date description facility 2020-03-28 00:00:00 [facility] [place] [facility] date description facility [id number]
== END 2020-04-22 21:20 | disposition home or self-care (01) ==
LOC: ED 19:11 → SDS 20:44 → ED 21:20
DX: S61.012A Laceration without foreign body of left thumb without damage to nail, initial encounter (principal); W26.0XXA Contact with knife, initial encounter; Y93.G1 Activity, food preparation and clean up; Y92.009 Unspecified place in unspecified non-institutional (private) residence as the place of occurrence of the external cause
CPT/HCPCS: 12001; 73140; 99282; 99283; A9270

== ENCOUNTER 2020-07-27 15:03 | Outpatient (CLI) | payer MEDICAID | END 2020-07-27 15:04 | disposition critical access hospital (66) | LOC: EMS 15:03 | DX: R42 Dizziness and giddiness (principal); R07.9 Chest pain, unspecified; R11.0 Nausea; R53.81 Other malaise | CPT/HCPCS: A0425; A0429; A0999 ==

== ENCOUNTER 2020-07-27 15:08 | Emergency (ER) | payer MEDICAID ==
[2020-07-27] MEDS ORDERED: SODIUM CHLORIDE 0.9% 1,000 ML IV STA (15:31)
[2020-07-27] MEDS ORDERED: ONDANSETRON 4 MG/2 ML VIAL IVP STA (15:31)
--- OUTSIDE RECORDS SUMMARY | 2020-07-27 15:32 | EXTERNAL MEDICAL SUMMARY RPT | Continuity of Care Document ---
:1975 Demographics Phone Unavailable Preferred Language Unknown Marital Status Unknown Jainism Affiliation Unknown Race Unknown Ethnic Group Unknown Author Organization [place] Address [address] [place] [address] Phone Social History date description facility [id number]
--- NOTE | 2020-07-27 15:35 | ED Physician Documentation ---
History of Present Illness - Stated complaint Stated Complaint: CP - Chief complaint Chief Complaint: Cardiac - Additonal information Additional information: 44-year-old female presents to the emergency department for evaluation of right arm pain chest pain and back pain as well as dizziness and nausea that she woke up with. She reports receiving her second COVID-19 vaccination yesterday and is unsure if this is the cause. She denies shortness of air or a pleuritic component to the chest pain. She reports that her right arm has never hurt this much and it began hurting immediately after she received the vaccine. No history of blood clots or cancer. No unilateral leg swelling. No recent travel or immobilization. No hormone use. Patient denies any history of hypertension. Non-smoker. No history of diabetes. She reports her most significant medical problems as psychiatric in nature with more than 4 hospitalizations related to suicidal ideation. 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 She recently began taking Seroquel and amitriptyline which she feels is effective at managing her condition and she now has feelings again. Review of Systems Constitutional: reports: Myalgias (right arm). denies: Fever, Chills Eyes: denies: Loss of vision, Decreased vision Ears: denies: Loss of hearing, Ear pain Nose: reports: Rhinorrhea / runny nose, Congestion Cardiac: reports: Chest pain / pressure. denies: Palpitations, Pedal edema, Calf pain Respiratory: denies: Dyspnea, Cough GI: reports: Nausea. denies: Abdominal Pain, Vomiting, Constipation, Diarrhea : reports: Reviewed and negative Skin: reports: Lesions (Erythema without induration surrounding the injection site right upper arm.). denies: Rash Musculoskeletal: reports: Extremity pain (Arm). denies: Neck pain Neurologic: reports: Generalized weakness. denies: Focal weakness, Numbness, Difficulty speaking, Near syncope, Syncope, Seizure, Confused, Altered mental status, Headache Psychiatric: reports: Depressed (Longstanding history of personality disorder as well as major depressive disorder). 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, Hysterectomy HEENT: Tonsil/Adenoidectomy - Present Medications Home Medications: Ambulatory Orders Medication Instructions Recorded Confirmed QUEtiapine [SEROquel] 200 mg PO DAILY PM 12/17/12 07/27/20 Amitriptyline [Elavil] 50 mg PO HS 04/22/20 07/27/20 Sumatriptan Succinate [Imitrex] 100 mg PO DAILY PRN 07/27/20 07/27/20 - Allergies Allergies/Adverse Reactions: Allergies Allergy/AdvReac Type Severity Reaction Status Date / Time aspirin Allergy Mild Nausea Verified 07/27/20 15:18 Latex, Natural Rubber Allergy Mild Hives Verified 07/27/20 15:18 - Social History Does the pt smoke?: No Smoking Status: Never smoker Does the pt drink ETOH?: No Does the pt have substance abuse?: No - Immunizations Immunizations are current?: Yes - POLST Patient has POLST: No PD ED PE EXPANDED - General General: Alert, No acute distress - HEENT HEENT: PERRL, EOMI, Ears normal, Moist mucous membranes - Cardiac Cardiac: Regular Rate, Radial strong equal, Pedal strong equal, Cap refill < 2 sec, Chest wall TTP (reprodicuble anterior chest wall pain). No: Murmur Present - Respiratory Respiratory: Clear to ausultation maty. No: Distress, Labored - Abdomen Abdomen: Normal Bowel sounds. No: Tender to palpation - Back Back: Normal exam. No: Vertebral tenderness, Soft tissue tenderness - Derm Derm: Normal color, Warm and dry, Other (Mild erythema without induration the right arm at the site of COVID-19 vaccination) - Extremities Extremities: Normal, Tenderness (Right arm.), Pedal Pulses Present. No: Pedal edema bilateral, Right calf TTP/cord - Neuro Neuro: Alert and Oriented X 3, CNII-XII intact, Cerebellar nl, Normal finger nose, Normal speech. No: Nystagmus - GCS Eye Opening: Spontaneous Motor: Obeys Commands Verbal: Oriented Total: 15 - Psych Psych: Normal Results - Vitals Vitals: Vital Signs - 24 hr 07/27/20 07/27/20 15:10 15:19 Temperature 36.2 C L 36.6 C Heart Rate 90 89 Respiratory 16 19 Rate Blood Pressure 143/58 H 143/58 H O2 Saturation 99 99 Oxygen O2 Source Room air - EKG (time done) 1509 Rate: Rate (enter#) (94) Rhythm: NSR [place]: Normal Intervals: Normal IA QRS: Low voltage Ischemia: Normal ST segments Compare to prior EKG: Old EKG unavailable Computer interpretation: Agree with computer - Labs Labs: Laboratory Tests 07/27/20 07/27/20 07/27/20 15:20 15:20 15:20 WBC 9.4 RBC 4.58 Hgb 12.7 Hct 38.5 MCV 84.1 MCH 27.7 MCHC 33.0 RDW 13.8 Plt Count 247 MPV 9.6 Neut # (Auto) 7.1 H Lymph # (Auto) 1.4 L [place] # (Auto) 0.6 Eos # (Auto) 0.2 Baso # (Auto) 0.0 Absolute Nucleated RBC 0.00 Nucleated RBC % 0.0 Sodium 138 Potassium 4.0 Chloride 103 Carbon Dioxide 26 Anion Gap 9.0 BUN 9 Creatinine 0.9 Estimated GFR (MDRD) 68 L Glucose 100 Calcium 9.6 Total Bilirubin 0.5 AST 27 ALT 20 Alkaline Phosphatase 137 H Troponin I High Sens 3.0 Total Protein 7.3 Albumin 3.8 Globulin 3.5 Albumin/Globulin Ratio 1.1 Lipase 24 - Rads (name of study) CXR Radiology: Final report received ([place], reduced inspiratory volume crowding of the bronchovascular markings. Obtaining a deep inspiratory PA and lateral chest plain film would provide better visualization.) PD MEDICAL DECISION MAKING - ED course Complexity details: reviewed results, re-evaluated patient, considered differential, d/w patient ED course: 44-year-old female presents emergency department with chest pain right arm pain nausea and dizziness that she woke up with. She did receive her COVID-19 vaccine yesterday. Patient has no hypoxia tachypnea. By PERC criteria she is low risk for PE. By Wells criteria also low risk for PE. D-dimer and CT imaging of the chest deferred. Screening EKG is nonischemic. High-sensitivity troponin negative. Chest x-ray completed was suboptimal and an expiratory film but no obvious infiltrates. In addition patient has no cough or fever therefore I doubt pneumonia. On exam her chest pain is quite reproducible and originates from the site of her COVID-19 vaccine. There is some mild erythema without induration surrounding the vaccine site but clinical suspicion for cellulitis is exceedingly low. Patient does have a significant psychiatric history and she admits that when she feels unwell she can get quite anxious. We discussed that right now her screening labs are essentially without worrisome findings my suspicion for PE or ACS is exceedingly low. Patient will be given 30 mg of Toradol which she states she has tolerated in the past despite an aspirin allergy. She also takes ibuprofen at home which I encouraged her to continue to do to help with the myalgias and arm pain. Emergent return precautions were discussed. Departure - Departure Disposition: Home, Self Care Clinical Impression: Right arm pain Chest pain Qualifiers: Chest pain type: unspecified Qualified Code(s): R07.9 - Chest pain, unspecified Condition: Stable Record reviewed to determine appropriate education?: Yes Instructions: ED Chest Pain Atypical Unkn Cause Follow-Up: ANISHA SHAVER, MSN, DISASTER RECOVERY SPECIALIST [Primary Care Provider] - Comments: Karen you were seen in the emergency department today with chest pain right arm pain after receiving your COVID-19 vaccination yesterday. As we discussed the mild redness around your injection site can be expected and is not a sign of infection. Your screening EKG, labs and chest x-ray are all without any worrisome abnormalities. The screening labs to look for signs of a heart attack are normal. Again as we discussed it is not likely that you have a blood clot in your lungs causing the chest pain. Many people will have generalized body aches and pain in the arm where they received an injection. I do recommend that you take the ibuprofen at home for discomfort get plenty of rest and drink lots of fluids. At any point you feel short of air, have fainting episodes feel your symptoms are not improving please return immediately to the ER for a second look.
[2020-07-27 15:37] LABS: BASOPHILS % (AUTO) 0.3 %; EOSINOPHILS # (AUTO) 0.2 10^3/uL (0.0-0.7); EOSINOPHILS % (AUTO) 1.7 %; HCT - HEMATOCRIT 38.5 % (37.0-47.0); HGB - HEMOGLOBIN 12.7 g/dL (12.0-16.0); LYMPHOCYTES # (AUTO) 1.4 10^3/uL (1.5-3.5); LYMPHOCYTES % (AUTO) 15.1 %; MEAN CORPUSCULAR HEMOGLOBIN 27.7 pg (27.0-31.0); MEAN CORPUSCULAR VOLUME 84.1 fL (81.0-99.0); MEAN PLATELET VOLUME 9.6 fL (7.9-10.8); MONOCYTES # (AUTO) 0.6 10^3/uL (0.0-1.0); MONOCYTES % (AUTO) 6.7 %; NEUTROPHILS # (AUTO) 7.1 10^3/uL (1.5-6.6); NEUTROPHILS % (AUTO) 75.6 %; PLT - PLATELET COUNT 247 10^3/uL (130-450); RED BLOOD COUNT 4.58 10^6/uL (4.20-5.40); RED CELL DISTRIBUTION WIDTH 13.8 % (12.0-15.0); WHITE BLOOD COUNT 9.4 x10^3/uL (4.8-10.8)
[2020-07-27 15:49] LABS: ALBUMIN 3.8 g/dL (3.2-5.5); ALBUMIN/GLOBULIN RATIO 1.1 (1.0-2.2); BILIRUBIN,TOTAL 0.5 mg/dL (0.2-1.0); CALCIUM 9.6 mg/dL (8.5-10.3); CREATININE 0.9 mg/dL (0.4-1.0); TOTAL PROTEIN 7.3 g/dL (6.7-8.2)
--- NOTE | 2020-07-27 15:58 | XRAY Report ---
PROCEDURE: Chest 1 View X-Ray INDICATIONS: Chest Pain TECHNIQUE: One view of the chest was acquired. COMPARISON: FINDINGS: Surgical changes and devices: None. Lungs and pleura: No pleural effusions or pneumothorax. Lungs are clear considering large body habi tus and reduced inspiratory volume. Mediastinum: Mediastinal contours appear normal. Heart size is normal. Bones and chest wall: No suspicious bony lesions. Overlying soft tissues appear unremarkable. IMPRESSION: Source of chest pain is not found. Large body habitus, reduced inspiratory volume, crowding of the br onchovascular markings at each lung through the mid and lower thirds. Obtaining a deep inspiratory PA and lateral chest plain film would provide better visualization. Reviewed by: Juan Bravo MD on 07/27/2020 3:57 PM PDT Approved by: Juan Bravo MD on 07/27/2020 3:57 PM PDT Station ID: [id number]
[2020-07-27] MEDS ORDERED: KETOROLAC 30 MG/ML VIAL IVP STA (16:15)
[2020-07-27 16:25] VITALS: BP 127/75
== END 2020-07-27 16:44 | disposition home or self-care (01) ==
LOC: EDUNIT# → ED 15:08
DX: R07.9 Chest pain, unspecified (principal); M79.601 Pain in right arm; T50.Z95A Adverse effect of other vaccines and biological substances, initial encounter; Y84.8 Other medical procedures as the cause of abnormal reaction of the patient, or of later complication, without mention of misadventure at the time of the procedure
CPT/HCPCS: 36415; 80053; 83690; 84484; 85025; 93005; 96374; 96375; 99284

== ENCOUNTER 2020-08-30 14:43 | Emergency (ER) | payer MEDICAID ==
[2020-08-30 15:07] VITALS: BP 142/92
[2020-08-30] MEDS ORDERED: KETOROLAC 60 MG/2 ML VIAL IM STA (15:14)
--- NOTE | 2020-08-30 15:15 | ED Physician Documentation ---
History of Present Illness - Stated complaint Stated Complaint: FACIAL SWELLING - Chief complaint Chief Complaint: Heent - History obtained from History obtained from: Patient - Additonal information Additional information: 3 days of left-sided facial swelling and pain related to a wisdom tooth. No fevers. 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, Hysterectomy HEENT: Tonsil/Adenoidectomy - Present Medications Home Medications: Ambulatory Orders Medication Instructions Recorded Confirmed QUEtiapine [SEROquel] 200 mg PO DAILY PM 12/17/12 07/27/20 Amitriptyline [Elavil] 50 mg PO HS 04/22/20 07/27/20 Sumatriptan Succinate [Imitrex] 100 mg PO DAILY PRN 07/27/20 07/27/20 Amox/Clav 875/125 [Augmentin] 1 each PO Q12H #20 tablet 08/30/20 HYDROcod/ACETAM 5/325 [[place] 5/325] 1 - 2 tab PO Q6H PRN #15 tablet 08/30/20 Ibuprofen [Motrin] 800 mg PO Q8H PRN #20 tablet 08/30/20 - Allergies Allergies/Adverse Reactions: Allergies Allergy/AdvReac Type Severity Reaction Status Date / Time aspirin Allergy Mild Nausea Verified 07/27/20 15:18 Latex, Natural Rubber Allergy Mild Hives Verified 07/27/20 15:18 morphine Allergy Hives Verified 08/30/20 15:08 - Social History Does the pt smoke?: No Smoking Status: Never smoker Does the pt drink ETOH?: No Does the pt have substance abuse?: No - Immunizations Immunizations are current?: Yes - POLST Patient has POLST: No PD ED PE NORMAL - Vitals Vital signs reviewed: Yes - General General: Alert and oriented X 3, No acute distress - HEENT HEENT: Other (Very mild left-sided facial swelling and tender to the left mandibular wisdom tooth without trismus or sublingual edema.) - Neck Neck: Supple, no meningeal sign, No bony TTP - Neuro Neuro: Alert and oriented X 3, Normal speech Results - Vitals Vitals: Vital Signs - 24 hr 08/30/20 15:03 Temperature 36.1 C L Heart Rate 76 Respiratory 15 Rate Blood Pressure 142/92 H O2 Saturation 99 Oxygen O2 Source Room air PD MEDICAL DECISION MAKING - ED course ED course: I am prescribing a short course of short-acting opioid pain medication for this patient. 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 I have discussed that the opioids are for short term therapy only, and will not be refilled from the ED. Departure - Departure Disposition: 01 Home, Self Care Clinical Impression: Dental abscess Condition: Good Record reviewed to determine appropriate education?: Yes Instructions: ED Abscess Dental Prescriptions: Amox/Clav 875/125 [Augmentin] 1 each PO Q12H #20 tablet Ibuprofen [Motrin] 800 mg PO Q8H PRN #20 tablet PRN Reason: PAIN &/OR FEVER HYDROcod/ACETAM 5/325 [[place] 5/325] 1 - 2 tab PO Q6H PRN #15 tablet PRN Reason: Pain Comments: It is very important that you follow-up with a dentist. When it comes to dental problems like yours, the emergency department can only offer a short-term solution to your long-term problem. A couple of low cost options for dental care include: [facility] in [place], calls [phone] for an appointment Or [facility] in [place], call [phone] for an appointment. I am prescribing a short course of narcotic pain medication for you. These are potentially dangerous and addictive medications that should be used carefully. These medications may constipate you. Take an [id number] stool softener (docusate) twice daily with plenty of water while taking these medications. If you go 24 hours without a bowel movement, take [id number] miralax, per package instructions. Do not drink or drive while taking these medications. If you received narcotic or sedating medications while in the emergency department, do not drive for 24 hours. Store this medication in a safe, secure place and out of reach of children. It is a violation of federal law to give or sell this medication to another person or to use in a manner other than prescribed. The ED will not refill narcotic prescriptions, including prescriptions lost or stolen. To dispose of unwanted medications: 1. [facility] at [address] in [place] has a medication drop box. They accept prescription medications (in pill form) Saturday through Saturday 9:00 a.m. to 5:00 p.m. 2. [facility] accepts prescription medications (in pill form only) for disposal year round. Call for more information. 3. Contact the [facility] for the next [facility] sponsored prescription drug collection event. , [phone], or [phone]; Note that many narcotic pain relievers also contain Tylenol/acetaminophen. Please ensure that your total dose of acetaminophen from all sources does not exceed 3 g (3000 mg) per day.
== END 2020-08-30 15:30 | disposition home or self-care (01) ==
LOC: ED 14:43
DX: K04.7 Periapical abscess without sinus (principal); G43.909 Migraine, unspecified, not intractable, without status migrainosus; F31.9 Bipolar disorder, unspecified; F90.9 Attention-deficit hyperactivity disorder, unspecified type
CPT/HCPCS: 96372; 99283

== ENCOUNTER 2020-10-25 17:38 | Emergency (ER) | payer MEDICAID ==
[2020-10-25] MEDS ORDERED: DEXAMETHASONE 10 MG/ML VIAL IV STA (20:12)
[2020-10-25] MEDS ORDERED: KETOROLAC 30 MG/ML VIAL IVP STA (20:12)
[2020-10-25] MEDS ORDERED: SODIUM CHLORIDE 0.9% 1,000 ML IV STA (20:12)
--- NOTE | 2020-10-25 20:15 | ED Physician Documentation ---
History of Present Illness - Stated complaint Stated Complaint: BODY SHAKES/FACE PX/VOM IT POST SURGERY - Chief complaint Chief Complaint: General - History obtained from History obtained from: Patient, Family - Additonal information Additional information: Patient comes emergency department chief complaint of facial and mandibular pain after Lateral mandibular wisdom tooth extraction 4 days ago. Patient states that she is not able to open her mouth hardly at all and has not been eating anything for 3 days. She has been taking little sips of water but even this is hard. She denies any fevers or chills. Her mother states that she had a red patch on the right side of her face over the mandible, but that this went away. She now just has some bruising Fairly to the mandible. Patient denies any difficulty breathing or difficulty swallowing. She was not placed on any antibiotics after the surgery. 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 She is, however, now out of the [place] and has been in quite a bit of pain. She states she is having trouble sleeping because it hurts so much. She denies any drainage from the extraction sites, but states she has a metallic taste in her mouth. She vomited once, she thinks because of the pain. Patient states that she does not feel that the symptoms have worsened since the surgery; she states that just have not gotten better. No other complaints at this time. Review of Systems Ten Systems: 10 systems reviewed and negative Constitutional: reports: Reviewed and negative Eyes: reports: Reviewed and negative Ears: reports: Reviewed and negative Nose: reports: Reviewed and negative Throat: reports: Dental pain / toothache, Other (Facial pain.) Cardiac: reports: Reviewed and negative Respiratory: reports: Reviewed and negative GI: reports: Reviewed and negative : reports: Reviewed and negative Skin: reports: Reviewed and negative Musculoskeletal: reports: Reviewed and negative Neurologic: reports: Reviewed and negative Psychiatric: reports: Reviewed and negative Endocrine: reports: Reviewed and negative Immunocompromised: reports: Reviewed and negative PD PAST MEDICAL HISTORY - Past Medical History Past Medical History: Yes Cardiovascular: None Respiratory: Asthma Neuro: Migraines Endocrine/Autoimmune: None GI: None 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 : None HEENT: None Psych: Bipolar disorder, ADD/ADHD Musculoskeletal: Fatigue, Chronic back pain Derm: None - Past Surgical History Past Surgical History: Yes General: Cholecystectomy, 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, Hysterectomy HEENT: Tonsil/Adenoidectomy - Present Medications Home Medications: Ambulatory Orders Medication Instructions Recorded Confirmed QUEtiapine [SEROquel] 200 mg PO DAILY PM 12/17/12 10/25/20 Amitriptyline [Elavil] 50 mg PO HS 04/22/20 10/25/20 Sumatriptan Succinate [Imitrex] 100 mg PO DAILY PRN 07/27/20 10/25/20 Amox/Clav 875/125 [Augmentin] 1 each PO Q12H #20 tablet 08/30/20 10/25/20 HYDROcod/ACETAM 5/325 [[place] 5/325] 1 - 2 tab PO Q6H PRN #15 tablet 08/30/20 10/25/20 Ibuprofen [Motrin] 800 mg PO Q8H PRN #20 tablet 08/30/20 10/25/20 HYDROcod/ACETAM 5/325 [[place] 5/325] 1 - 2 tablet PO Q6H PRN #14 tablet 10/25/20 Ondansetron Odt [Zofran] 4 mg TL Q6H PRN #10 tablet 10/25/20 - Allergies Allergies/Adverse Reactions: Allergies Allergy/AdvReac Type Severity Reaction Status Date / Time aspirin Allergy Mild Nausea Verified 10/25/20 17:49 Latex, Natural Rubber Allergy Mild Hives Verified 10/25/20 17:49 morphine Allergy Hives Verified 10/25/20 17:49 - Social History Does the pt smoke?: No Smoking Status: Never smoker Does the pt drink ETOH?: No Does the pt have substance abuse?: No - Immunizations Immunizations are current?: Yes - POLST Patient has POLST: No PD ED PE NORMAL - Vitals Vital signs reviewed: Yes - General General: Alert and oriented X 3, Well developed/nourished, Other (The patient is tearful and appears uncomfortable, but otherwise in no apparent distress.) - HEENT HEENT: Atraumatic, PERRL, EOMI, Moist mucous membranes, Other (Swelling of bilateral face over mandibular angle, worse on right compared to left. Mild ecchymosis just inferior to the mandibular angle. Limited ability to open mouth, but with retraction of cheek, typical appearance post extraction without drainage noted. No buccal fluct/mass/induration) - Neck Neck: Supple, no meningeal sign, No adenopathy - Respiratory Respiratory: No respiratory distress - Derm Derm: Normal color, Warm and dry, No rash - Extremities Extremities: No deformity - Neuro Neuro: Alert and oriented X 3, Other (Grossly intact.) - Psych Psych: Normal mood, Normal affect Results - Vitals Vitals: Vital Signs - 24 hr 10/25/20 10/25/20 10/25/20 17:49 19:17 19:32 Temperature 36.5 C 36.4 C L 36.5 C Heart Rate 85 76 75 Respiratory 16 18 17 Rate Blood Pressure 148/92 H 153/91 H 151/89 H O2 Saturation 97 97 97 10/25/20 10/25/20 21:00 21:58 Temperature 36.5 C Heart Rate 72 71 Respiratory 16 16 Rate Blood Pressure 148/82 H 142/78 H O2 Saturation 98 99 Oxygen O2 Source Room air PD MEDICAL DECISION MAKING - ED course Complexity details: considered differential, d/w patient, d/w family ED course: I discussed at length with patient and her mother that the symptoms patient is having are fairly normal after wisdom tooth extraction. Unfortunately, given the patient's history of narcotic addiction, she has not been able to achieve adequate pain control because of her reluctance to take narcotics, which is understandable. I have offered the patient IV fluids, IV Toradol, and a dose of steroids here, to which she has agreed. I do not feel that antibiotics are indicated at this time. Patient was found to be feeling better after symptomatic treatment in the emergency department. We have discussed getting better control of her pain at home and patient states she will take the low frequency dosing of [place] again. I will also give the patient a prescription for Zofran. We have discussed home management and the usual indications for follow-up and return. Departure - Departure Disposition: 01 Home, Self Care Clinical Impression: Post-operative pain, S/P wisdom tooth extraction Condition: Stable Instructions: Teeth [place] Removal, [place] Teeth Recovery, ED Post Op Pain Prescriptions: HYDROcod/ACETAM 5/325 [[place] 5/325] 1 - 2 tablet PO Q6H PRN #14 tablet PRN Reason: Pain Ondansetron Odt [Zofran] 4 mg TL Q6H PRN #10 tablet PRN Reason: Nausea / Vomiting Discharge Date/Time: 10/25/20 21:58
[2020-10-25] MEDS ORDERED: ONDANSETRON 4 MG/2 ML VIAL IVP STA (20:45)
[2020-10-25] MEDS ORDERED: HYDROcod/ACETAM 5/325 MG TABLET PO STA (21:18)
[2020-10-25 22:00] VITALS: BP 142/78
== END 2020-10-25 21:58 | disposition home or self-care (01) ==
LOC: ED 17:38
DX: G89.18 Other acute postprocedural pain (principal); K08.89 Other specified disorders of teeth and supporting structures; Z98.818 Other dental procedure status
CPT/HCPCS: 96374; 96375; 99284; A9270

== ENCOUNTER 2020-10-28 23:56 | Emergency (ER) | payer MEDICAID ==
[2020-10-29] MEDS ORDERED: HYDROmorphone 1 MG/ML CARPUJECT IM STA (00:59)
[2020-10-29] MEDS ORDERED: ONDANSETRON ODT 4 MG TABLET TL STA (00:59)
[2020-10-29] MEDS ORDERED: SODIUM CHLORIDE 0.9% 1,000 ML IV STA (02:25)
[2020-10-29] MEDS ORDERED: cefTRIAXone 1 GM in SODIUM CHLORIDE 0.9% MINIBAG 100 ML IV STA (02:25)
--- NOTE | 2020-10-29 02:28 | ED Physician Documentation ---
PD HPI HEENT - Stated complaint Stated Complaint: JAW PX - Chief complaint Chief Complaint: Heent - History obtained from History obtained from: Patient - History of Present Illness Timing - onset: How many days ago (4) Timing - duration: Days (4) Timing - details: Gradual onset, Still present Location: Tooth Improves: Medication Worsens: Everything Associated symptoms: Other (foul taste in mouth with drainage from right lower molar) Similar symptoms before: Diagnosis (dental infection) Recently seen: Emergency Dept, Surgery - Additional information Additional information: 44-year-old female has had her right and left lower wisdom teeth removed 1 week ago in [place]. About 4 days ago she began to develop intolerable pain in the right lower side. The left seems to be doing okay. She is developed a foul taste in her mouth. She was seen in the emergency department 4 days ago and administered fluids as she was having difficulty eating and drinking. She continues to have difficulty eating and drinking she states that she has not had anything to eat in the past week and she is barely able to drink. She comes into the emergency department this evening in tears and pain stating is difficult for her to open her mouth and she has swelling to the right side of her face. She has not had fever. She has had similar complication with removal of the right upper molar. She states at that time she ended up in the hospital for 3 days with infection. 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 : None HEENT: None Psych: Bipolar disorder, ADD/ADHD Musculoskeletal: Fatigue, Chronic back pain Derm: None - Past Surgical History Past Surgical History: Yes General: Cholecystectomy, Appendectomy /BENCH REPAIR TECHNICIAN: section, Hysterectomy HEENT: Tonsil/Adenoidectomy - Present Medications Home Medications: Ambulatory Orders Medication Instructions Recorded Confirmed QUEtiapine [SEROquel] 200 mg PO DAILY PM 12/17/12 10/25/20 Amitriptyline [Elavil] 50 mg PO HS 04/22/20 10/25/20 Sumatriptan Succinate [Imitrex] 100 mg PO DAILY PRN 07/27/20 10/25/20 Amox/Clav 875/125 [Augmentin] 1 each PO Q12H #20 tablet 08/30/20 10/25/20 HYDROcod/ACETAM 5/325 [[place] 5/325] 1 - 2 tab PO Q6H PRN #15 tablet 08/30/20 10/25/20 Ibuprofen [Motrin] 800 mg PO Q8H PRN #20 tablet 08/30/20 10/25/20 HYDROcod/ACETAM 5/325 [[place] 5/325] 1 - 2 tablet PO Q6H PRN #14 tablet 10/25/20 Ondansetron Odt [Zofran] 4 mg TL Q6H PRN #10 tablet 10/25/20 Amox/Clav 875/125 [Augmentin] 1 each PO Q12H #14 tablet 10/29/20 HYDROcod/ACETAM 5/325 [[place] 5/325] 1 - 2 tablet PO Q6H PRN #14 tablet 10/29/20 - Allergies Allergies/Adverse Reactions: Allergies Allergy/AdvReac Type Severity Reaction Status Date / Time aspirin Allergy Mild Nausea Verified 10/29/20 00:04 Latex, Natural Rubber Allergy Mild Hives Verified 10/29/20 00:04 morphine Allergy Hives Verified 10/29/20 00:04 - Social History Does the pt smoke?: No Smoking Status: Never smoker Does the pt drink ETOH?: No Does the pt have substance abuse?: No - Immunizations Immunizations are current?: Yes - POLST Patient has POLST: No PD ED PE NORMAL - Vitals Vital signs reviewed: Yes (Hypertensive) - General General: Alert and oriented X 3, Well developed/nourished, Other (44-year-old female crying in pain whimpering.) - HEENT HEENT: Atraumatic, PERRL, EOMI, Other (There is drainage from the site of the right lower molar extraction with a very foul-smelling pus. There is tenderness to the general area. It is difficult to examine the patient because she is unable to open her mouth widely.) - Neck Neck: Supple, no meningeal sign, No bony TTP - Cardiac Cardiac: RRR, No murmur - Respiratory Respiratory: No respiratory distress, Clear bilaterally - Abdomen Abdomen: Soft, Non tender - Back Back: No CVA TTP, No spinal TTP - Derm Derm: Normal color, Warm and dry, No rash - Extremities Extremities: No deformity, No edema - Neuro Neuro: Alert and oriented X 3, separations scientist 2-12 intact, No motor deficit, No sensory deficit, Normal speech Eye Opening: Spontaneous Motor: Obeys Commands Verbal: Oriented GCS Score: 15 - Psych Psych: Other (Wound is painful the affect is labile) Results - Vitals Vitals: Vital Signs - 24 hr 10/28/20 10/29/20 10/29/20 23:59 01:55 02:48 Temperature 36.0 C L 36.8 C Heart Rate 87 86 Respiratory 18 16 Rate Blood Pressure 149/94 H 154/93 H O2 Saturation 99 96 100 Oxygen O2 Source Room air - Labs Labs: Laboratory Tests 10/29/20 10/29/20 02:32 02:32 WBC 9.1 RBC 4.10 L Hgb 11.7 L Hct 35.2 L MCV 85.9 MCH 28.5 MCHC 33.2 RDW 13.3 Plt Count 277 MPV 9.0 Neut # (Auto) 5.6 Lymph # (Auto) 2.5 [place] # (Auto) 0.6 Eos # (Auto) 0.2 Baso # (Auto) 0.1 Absolute Nucleated RBC 0.00 Nucleated RBC % 0.0 Sodium 137 Potassium 3.6 Chloride 100 L Carbon Dioxide 26 Anion Gap 11.0 BUN 12 Creatinine 0.9 Estimated GFR (MDRD) 68 L Glucose 100 Calcium 8.8 Total Bilirubin 0.5 AST 26 ALT 24 Alkaline Phosphatase 136 H Total Protein 6.9 Albumin 3.8 Globulin 3.1 Albumin/Globulin Ratio 1.2 Lipase 22 Procedures - IVC sono (time) 0220 Bedside IVC sono: IVC measures (cm) (0.99), Dehydration (Estimated 1 to 2 L deficit) PD MEDICAL DECISION MAKING - ED course Complexity details: reviewed old records, reviewed results, re-evaluated patient, considered differential, d/w patient ED course: 44-year-old female presents to the emergency department a week after getting a tooth extraction with severe pain to the right lower jaw and pus draining from the extraction site. She is in so much pain when she arrives we administer a milligram of Dilaudid and 4 of Zofran TL prior to examination. She has improvement in her pain with the pain medication and will allow adequate examination. A culture of the pus is taken. She is found to be dehydrated on interrogation the inferior vena cava and she is administered intravenous saline. She has obvious infection and she is administered a gram of Rocephin intravenously. She is able to take amoxicillin and we will prescribe Augmentin. Departure - Departure Disposition: 01 Home, Self Care Clinical Impression: Dental abscess Condition: Stable Instructions: ED Abscess Dental Follow-Up: Jem Hoang DDS [Provider Admit Priv/Credential] - Prescriptions: Amox/Clav 875/125 [Augmentin] 1 each PO Q12H #14 tablet HYDROcod/ACETAM 5/325 [[place] 5/325] 1 - 2 tablet PO Q6H PRN #14 tablet PRN Reason: Pain
[2020-10-29] MEDS ORDERED: cefTRIAXone 1 GM VIAL ONE (02:38)
[2020-10-29 02:39] LABS: BASOPHILS # (AUTO) 0.1 10^3/uL (0.0-0.1); BASOPHILS % (AUTO) 0.7 %; EOSINOPHILS # (AUTO) 0.2 10^3/uL (0.0-0.7); EOSINOPHILS % (AUTO) 2.4 %; HCT - HEMATOCRIT 35.2 % (37.0-47.0); HGB - HEMOGLOBIN 11.7 g/dL (12.0-16.0); LYMPHOCYTES # (AUTO) 2.5 10^3/uL (1.5-3.5); LYMPHOCYTES % (AUTO) 27.8 %; MEAN CORPUSCULAR HEMOGLOBIN 28.5 pg (27.0-31.0); MEAN CORPUSCULAR HGB CONC 33.2 g/dL (32.0-36.0); MEAN CORPUSCULAR VOLUME 85.9 fL (81.0-99.0); MONOCYTES # (AUTO) 0.6 10^3/uL (0.0-1.0); NEUTROPHILS # (AUTO) 5.6 10^3/uL (1.5-6.6); NEUTROPHILS % (AUTO) 61.7 %; PLT - PLATELET COUNT 277 10^3/uL (130-450); RED CELL DISTRIBUTION WIDTH 13.3 % (12.0-15.0); WHITE BLOOD COUNT 9.1 x10^3/uL (4.8-10.8)
[2020-10-29 02:51] LABS: ALBUMIN 3.8 g/dL (3.2-5.5); ALBUMIN/GLOBULIN RATIO 1.2 (1.0-2.2); BILIRUBIN,TOTAL 0.5 mg/dL (0.2-1.0); CALCIUM 8.8 mg/dL (8.5-10.3); CREATININE 0.9 mg/dL (0.4-1.0); POTASSIUM 3.6 mmol/L (3.5-5.0); TOTAL PROTEIN 6.9 g/dL (6.7-8.2)
[2020-10-29] MEDS ORDERED: HYDROmorphone 1 MG/ML CARPUJECT IVP STA (03:23)
[2020-10-29 03:55] VITALS: BP 138/78
== END 2020-10-29 04:00 | disposition home or self-care (01) ==
LOC: ED 23:56
DX: K04.7 Periapical abscess without sinus (principal); Z98.818 Other dental procedure status; E86.0 Dehydration
CPT/HCPCS: 36415; 80053; 83690; 85025; 87070; 87205; 96361; 96365; 96372; 96375; 99284; J1170; Q0162

== ENCOUNTER 2020-11-05 16:52 | Emergency (ER) | payer MEDICAID ==
[2020-11-05] MEDS ORDERED: HYDROmorphone 1 MG/ML CARPUJECT IVP STA (18:55)
[2020-11-05] MEDS ORDERED: HYDROmorphone 1 MG/ML CARPUJECT IM STA (18:59)
--- NOTE | 2020-11-05 18:59 | ED Physician Documentation ---
History of Present Illness - Stated complaint Stated Complaint: TOOTH PX - Chief complaint Chief Complaint: Heent - Additonal information Additional information: 44 female presents emergency department for evaluation of pain out the right lo wer jaw at the site where she had a tooth extracted number weeks ago. This is her third ER visit for same. She is currently finishing a prescription of Augmentin. She feels what she thinks is a sharp piece of tooth near her tongue. She is crying and in pain. She has been unable to follow-up with her oral surgeon. No fevers or chills. No dysphonia. No trismus. Review of Systems Constitutional: denies: Fever, Chills Eyes: reports: Reviewed and negative Ears: reports: Reviewed and negative Nose: reports: Reviewed and negative Throat: reports: Dental pain / toothache. 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 IT ASSISTANT: None : None HEENT: None Psych: Bipolar disorder, ADD/ADHD Musculoskeletal: Fatigue, Chronic back pain Derm: None - Past Surgical History Past Surgical History: Yes General: Cholecystectomy, Appendectomy /SENIOR IT ASSISTANT: section, Hysterectomy HEENT: Tonsil/Adenoidectomy - Present Medications Home Medications: Ambulatory Orders Medication Instructions Recorded Confirmed QUEtiapine [SEROquel] 200 mg PO DAILY PM 12/17/12 10/25/20 Amitriptyline [Elavil] 50 mg PO HS 04/22/20 10/25/20 Sumatriptan Succinate [Imitrex] 100 mg PO DAILY PRN 07/27/20 10/25/20 Amox/Clav 875/125 [Augmentin] 1 each PO Q12H #20 tablet 08/30/20 10/25/20 HYDROcod/ACETAM 5/325 [[place] 5/325] 1 - 2 tab PO Q6H PRN #15 tablet 08/30/20 10/25/20 Ibuprofen [Motrin] 800 mg PO Q8H PRN #20 tablet 08/30/20 10/25/20 HYDROcod/ACETAM 5/325 [[place] 5/325] 1 - 2 tablet PO Q6H PRN #14 tablet 10/25/20 Ondansetron Odt [Zofran] 4 mg TL Q6H PRN #10 tablet 10/25/20 Amox/Clav 875/125 [Augmentin] 1 each PO Q12H #14 tablet 10/29/20 HYDROcod/ACETAM 5/325 [[place] 5/325] 1 - 2 tablet PO Q6H PRN #14 tablet 10/29/20 Ibuprofen [Motrin] 600 mg PO Q6H PRN #30 tab 11/05/20 - Allergies Allergies/Adverse Reactions: Allergies Allergy/AdvReac Type Severity Reaction Status Date / Time aspirin Allergy Mild Nausea Verified 11/05/20 17:21 Latex, Natural Rubber Allergy Mild Hives Verified 11/05/20 17:21 morphine Allergy Hives Verified 11/05/20 17:21 - Social History Does the pt smoke?: No Smoking Status: Never smoker Does the pt drink ETOH?: No Does the pt have substance abuse?: No - Immunizations Immunizations are current?: Yes - POLST Patient has POLST: No PD ED PE EXPANDED - General General: Alert, In Pain - HEENT HEENT: Other (The extraction site on the right lower jaw appears intact with very minimal erythema. There is no drainage. No trismus. No dysphonia. Full range of motion of the neck.) Results - Vitals Vitals: Vital Signs - 24 hr 11/05/20 17:15 Temperature 36.9 C Heart Rate 84 Respiratory 20 Rate Blood Pressure 150/92 H O2 Saturation 100 Oxygen O2 Source Room air PD MEDICAL DECISION MAKING - ED course Complexity details: reviewed old records, re-evaluated patient, d/w patient ED course: 44 old female presents emergency department with persistent right lower jaw pain at the site where she recently had a tooth extracted. This is her third ED visit for similar. I had offered her Dilaudid but in reevaluation the patient reports to me that she must now go to work and because she is afraid of becoming addicted she has declined a prescription for narcotics. She is requesting a prescription for Motrin. She ensures to me that she will follow up with her oral surgeon. On exam again there was very minimal erythema at the site of the extraction with no secondary findings to suggest abscess formation at this time. Emergent return precautions were discussed. Departure - Departure Disposition: 01 Home, Self Care Clinical Impression: Tooth pain Condition: Stable Record reviewed to determine appropriate education?: Yes Instructions: ED Tooth Pain Prescriptions: Ibuprofen [Motrin] 600 mg PO Q6H PRN #30 tab PRN Reason: Pain Comments: Karen I have prescribed some ibuprofen or Motrin for you. You can take this 3 times a day with food. I encourage you to use Anbesol or Orajel. Rinsing with warm salt water can also be helpful. It is important that you continue to follow-up with your oral surgeon.
[2020-11-05] MEDS ORDERED: IBUPROFEN 800 MG TABLET PO STA (19:06)
[2020-11-05 19:17] VITALS: BP 141/91
== END 2020-11-05 19:19 | disposition home or self-care (01) ==
LOC: ED 16:52
DX: K08.89 Other specified disorders of teeth and supporting structures (principal)
CPT/HCPCS: 99282; 99283; A9270

== ENCOUNTER 2021-08-19 19:19 | Emergency (ER) | payer OTHER, MEDICAID ==
[2021-08-19] MEDS ORDERED: KETOROLAC 15 MG/ML VIAL IVP STA (19:38)
--- NOTE | 2021-08-19 19:40 | ED Physician Documentation ---
PD HPI CHEST PAIN - Stated complaint Stated Complaint: CHEST PX - Chief complaint Chief Complaint: Cardiac - History obtained from History obtained from: Patient - Additional information Additional information: 45-year-old woman with no history of heart problems. She is a remote ex-smoker, 13 years ago and her father has coronary disease although it sounds like they are estranged so she does not know at what age that manifested. She was at work tonight around 530 and developed an electrical burning type pain under the left breast which about an hour ago moved to the right breast. Hurts worse if she takes a deep breath or moves. And she is short of breath because it hurts to take a deep breath. She denies nausea or sweats. There is no radiation of the pain to the back, neck, or stomach. No pedal edema or calf pain. No possibility of . No recent travel. 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 : None HEENT: None Psych: Bipolar disorder, ADD/ADHD Musculoskeletal: Fatigue, Chronic back pain Derm: None - Past Surgical History Past Surgical History: Yes General: Cholecystectomy, Appendectomy /DIVERSITY MANAGER: section, Hysterectomy HEENT: Tonsil/Adenoidectomy - Present Medications Home Medications: Ambulatory Orders Medication Instructions Recorded Confirmed QUEtiapine [SEROquel] 200 mg PO DAILY PM 12/17/12 10/25/20 Amitriptyline [Elavil] 50 mg PO HS 04/22/20 10/25/20 Sumatriptan Succinate [Imitrex] 100 mg PO DAILY PRN 07/27/20 10/25/20 Amox/Clav 875/125 [Augmentin] 1 each PO Q12H #20 tablet 08/30/20 10/25/20 HYDROcod/ACETAM 5/325 [[place] 5/325] 1 - 2 tab PO Q6H PRN #15 tablet 08/30/20 10/25/20 Ibuprofen [Motrin] 800 mg PO Q8H PRN #20 tablet 08/30/20 10/25/20 HYDROcod/ACETAM 5/325 [[place] 5/325] 1 - 2 tablet PO Q6H PRN #14 tablet 10/25/20 Ondansetron Odt [Zofran] 4 mg TL Q6H PRN #10 tablet 10/25/20 Amox/Clav 875/125 [Augmentin] 1 each PO Q12H #14 tablet 10/29/20 HYDROcod/ACETAM 5/325 [[place] 5/325] 1 - 2 tablet PO Q6H PRN #14 tablet 10/29/20 Ibuprofen [Motrin] 600 mg PO Q6H PRN #30 tab 11/05/20 traMADol [Ultram] 50 mg PO Q6H PRN #14 tablet 08/19/21 - Allergies Allergies/Adverse Reactions: Allergies Allergy/AdvReac Type Severity Reaction Status Date / Time aspirin Allergy Mild Nausea Verified 08/19/21 19:30 Latex, Natural Rubber Allergy Mild Hives Verified 08/19/21 19:30 morphine Allergy Hives Verified 08/19/21 19:30 - Social History Does the pt smoke?: No Smoking Status: Never smoker Does the pt drink ETOH?: No Does the pt have substance abuse?: No - Immunizations Immunizations are current?: Yes - POLST Patient has POLST: No PD ED PE NORMAL - Vitals Vital signs reviewed: Yes - General General: Alert and oriented X 3, Other (She appears uncomfortable and is clutching the right side of her chest and pain.) - HEENT HEENT: PERRL, EOMI - Neck Neck: Supple, no meningeal sign, No bony TTP - Cardiac Cardiac: RRR, No murmur - Respiratory Respiratory: No respiratory distress, Clear bilaterally - Abdomen Abdomen: Normal bowel sounds, Soft, Non tender - Back Back: No CVA TTP, No spinal TTP - Derm Derm: Normal color, Warm and dry - Extremities Extremities: No edema, No calf tenderness / cord - Neuro Neuro: Alert and oriented X 3, Normal speech Results - Vitals Vitals: Vital Signs - 24 hr 08/19/21 08/19/21 08/19/21 19:20 20:00 23:00 Temperature 36.8 C Heart Rate 98 Respiratory 14 18 20 Rate Blood Pressure 146/100 H 144/67 H 150/84 H O2 Saturation 95 94 96 08/20/21 00:10 Temperature Heart Rate 98 Respiratory 20 Rate Blood Pressure 150/84 H O2 Saturation 96 Oxygen O2 Source Room air - EKG (time done) 193 Rate: Rate (enter#) (80) Rhythm: NSR [place]: Normal Intervals: Normal PA, Prolonged QT (Borderline prolonged QT at 488) Ischemia: Normal ST segments Computer interpretation: Disagree with computer (Computer reading complete heart block which is erroneous) - Labs Labs: Laboratory Tests 08/19/21 08/19/21 08/19/21 20:38 20:38 20:38 WBC 8.8 RBC 4.50 Hgb 12.7 Hct 38.1 MCV 84.7 MCH 28.2 MCHC 33.3 RDW 13.7 Plt Count 280 MPV 9.7 Neut # (Auto) 5.6 Lymph # (Auto) 2.4 [place] # (Auto) 0.6 Eos # (Auto) 0.2 Baso # (Auto) 0.0 Absolute Nucleated RBC 0.00 Nucleated RBC % 0.0 D-Dimer 728.3 H Sodium 139 Potassium 3.5 Chloride 103 Carbon Dioxide 26 Anion Gap 10.0 BUN 14 Creatinine 0.7 Estimated GFR (MDRD) 91 Glucose 96 Calcium 8.9 Total Bilirubin 0.4 AST 18 ALT 15 Alkaline Phosphatase 108 Troponin I High Sens Total Protein 7.2 Albumin 3.7 Globulin 3.5 Albumin/Globulin Ratio 1.1 Lipase 32 08/19/21 20:38 WBC RBC Hgb Hct MCV MCH MCHC RDW Plt Count MPV Neut # (Auto) Lymph # (Auto) [place] # (Auto) Eos # (Auto) Baso # (Auto) Absolute Nucleated RBC Nucleated RBC % D-Dimer Sodium Potassium Chloride Carbon Dioxide Anion Gap BUN Creatinine Estimated GFR (MDRD) Glucose Calcium Total Bilirubin AST ALT Alkaline Phosphatase Troponin I High Sens 2.9 Total Protein Albumin Globulin Albumin/Globulin Ratio Lipase PD MEDICAL DECISION MAKING - ED course ED course: 45yo female with R anterior pleuritic chest pain, seems like chest wall. Reproducible with palpation. Cardiac w/u was neg but dimer pos. She only had a 22g PIV in L AC, several attempts made by me for larger IV access with u/s guidance were not successful. tree and shrub technician was able to obtain a good PE study though with the 22G PIV. Care to Dr Najera at change of shift pending CT result. Departure - Departure Disposition: 01 Home, Self Care Clinical Impression: Chest wall pain Condition: Good Record reviewed to determine appropriate education?: Yes Instructions: ED Chest Pain NonCardiac Prescriptions: traMADol [Ultram] 50 mg PO Q6H PRN #14 tablet PRN Reason: Pain Comments: CT scan was negative for serious finding. There was a small adrenal nodule, which is likely benign, mention it to your physician for monitoring. Return for new or worse symptoms. Tylenol or ibuprofen as needed for pain. A prescription for tramadol has been electronically submitted to [facility] in [place]. I am prescribing a short course of narcotic pain medication for you. These are potentially dangerous and addictive medications that should be used carefully. These medications may constipate you. Take an [id number] stool softener (docusate) twice daily with plenty of water while taking these medications. If you go 24 hours without a bowel movement, take [id number] miralax, per package instructions. Do not drink or drive while taking these medications. If you received narcotic or sedating medications while in the emergency department, do not drive for 24 hours. Store this medication in a safe, secure place and out of reach of children. It is a violation of federal law to give or sell this medication to another person or to use in a manner other than prescribed. The ED will not refill narcotic prescriptions, including prescriptions lost or stolen. To dispose of unwanted medications: 1. [facility] at [address] in [place] has a medication drop box. They accept prescription medications (in pill form) Saturday through Saturday 9:00 a.m. to 5:00 p.m. 2. The [facility] accepts prescription medications (in pill form only) for disposal year round. Call for more information. 3. Contact the [facility] for the next [facility] sponsored prescription drug collection event. , [phone], or [phone]; Forms: Activity restrictions Discharge Date/Time: 08/20/21 00:12
--- NOTE | 2021-08-19 20:13 | XRAY Report ---
PROCEDURE: Chest 1 View X-Ray INDICATIONS: Chest Pain TECHNIQUE: One view of the chest was acquired. COMPARISON: 07/27/2020 FINDINGS: Lung volumes are low. No focal consolidation. No pleural effusion or pneumothorax. Normal cardiomediastinal contours. No acute thoracic abnormality. IMPRESSION: No acute thoracic process identified on radiography. Reviewed by: Broderick Tam MD on 08/19/2021 8:12 PM PDT Approved by: Broderick Tam MD on 08/19/2021 8:12 PM PDT Station ID: [id number]
[2021-08-19 20:46] LABS: BASOPHILS % (AUTO) 0.5 %; EOSINOPHILS # (AUTO) 0.2 10^3/uL (0.0-0.7); EOSINOPHILS % (AUTO) 1.9 %; HCT - HEMATOCRIT 38.1 % (37.0-47.0); HGB - HEMOGLOBIN 12.7 g/dL (12.0-16.0); LYMPHOCYTES # (AUTO) 2.4 10^3/uL (1.5-3.5); LYMPHOCYTES % (AUTO) 27.1 %; MEAN CORPUSCULAR HEMOGLOBIN 28.2 pg (27.0-31.0); MEAN CORPUSCULAR HGB CONC 33.3 g/dL (32.0-36.0); MEAN CORPUSCULAR VOLUME 84.7 fL (81.0-99.0); MEAN PLATELET VOLUME 9.7 fL (7.9-10.8); MONOCYTES # (AUTO) 0.6 10^3/uL (0.0-1.0); MONOCYTES % (AUTO) 6.7 %; NEUTROPHILS # (AUTO) 5.6 10^3/uL (1.5-6.6); NEUTROPHILS % (AUTO) 63.3 %; PLT - PLATELET COUNT 280 10^3/uL (130-450); RED CELL DISTRIBUTION WIDTH 13.7 % (12.0-15.0); WHITE BLOOD COUNT 8.8 x10^3/uL (4.8-10.8)
[2021-08-19 21:00] LABS: ALBUMIN 3.7 g/dL (3.2-5.5); ALBUMIN/GLOBULIN RATIO 1.1 (1.0-2.2); BILIRUBIN,TOTAL 0.4 mg/dL (0.2-1.0); CALCIUM 8.9 mg/dL (8.5-10.3); CREATININE 0.7 mg/dL (0.4-1.0); POTASSIUM 3.5 mmol/L (3.5-5.0); TOTAL PROTEIN 7.2 g/dL (6.7-8.2)
[2021-08-19] MEDS ORDERED: IOPAMIDOL-300 100 ML VIAL ONE (21:47)
[2021-08-19] MEDS ORDERED: IOPAMIDOL-300 100 ML VIAL IVP ONE (22:47)
[2021-08-19 23:05] VITALS: BP 150/84
--- NOTE | 2021-08-19 23:25 | CT Report ---
PROCEDURE: ANGIO CHEST W/WO INDICATIONS: Pleuritic chest pain, PE protocol CONTRAST: IV CONTRAST: Isovue 300 ml: 100 PO CONTRAST: *NO PO CONTRAST TECHNIQUE: After the administration of intravenous contrast, 2 mm axial images were acquired from the pulmonary apices to the posterior costophrenic angles during the arterial phase. In addition, 1 mm lung kernel and 5 mm soft tissue kernel reconstructions were performed. 3-dimensional coronal oblique maximum int ensity projection (MIP) reformats, 8 mm axial MIP, and 5 mm coronal and sagittal MPR reformats were t hen performed through the thorax. For radiation dose reduction, the following was used: automated exp osure control, adjustment of mA and/or kV according to patient size. COMPARISON: Chest plain film same day. FINDINGS: Image quality: Excellent. Pulmonary arteries: Pulmonary arteries are normal in size, and demonstrate no intraluminal filling d efects to suggest central pulmonary embolism. Lungs and pleura: Lungs are clear. No pleural effusions or pneumothorax. Central and peripheral ai rways are patent. Mediastinum: Heart size is normal, without pericardial effusion. No mediastinal or hilar adenopathy . Thoracic aorta is normal in caliber and enhancement. Esophagus is normal in caliber, without hiat al hernia. Bones and chest wall: No suspicious bony lesions. Ribs and thoracic spine appear intact throughout. No axillary or supraclavicular adenopathy. The thyroid is normal in size and there are no incident al findings. Abdomen: Visualized upper abdominal solid organs appear normal in the early arterial phase of enhanc ement except at the left adrenal gland where a 2 cm solid-appearing left adrenal nodule is found.. IMPRESSION: No pulmonary embolus is found. No pneumonia is seen. Note is made of a 2 cm left adrenal nodule. CLINICAL RECOMMENDATION STATEMENTS: In patients <35 years with an ITN detected on CT, MRI, or extrathyroidal ultrasound, the Committee re commends further evaluation with dedicated thyroid ultrasound if the nodule is "e1 cm and has no susp icious imaging features, and if the patient has normal life expectancy. In patients "e35 years with an ITN detected on CT, MRI, or extrathyroidal ultrasound, the Committee r ecommends further evaluation with dedicated thyroid ultrasound if the nodule is "e1.5 cm and has no s uspicious imaging features, and if the patient has normal life expectancy. (ACR, 2014) Reviewed by: Juan Bravo MD on 08/19/2021 11:27 PM PDT Approved by: Juan Bravo MD on 08/19/2021 11:27 PM PDT Station ID: [id number]
--- NOTE | 2021-08-19 23:52 | ED Physician Documentation ---
ED Addendum - Addendum Addendum: 08/19/21 23:48 received sign out from Dr. Carlton. Patient c/o chest pain , work up tonight notable for elevated d-dimer and thus CTA chest ordered and pending at time of sign out. CTA chest unremarkable for acute/emergent pathology. Incidental note of adrenal nodule. Results d/w patient. She says she is still having pain and we discussed options for pain control; she says she is recovering addict and would like to avoid narcotics. It is too early to redose toradol/nsaid. Options discussed included acetaminophen, tramadol. She is familiar with both of these and understands that tramadol is considered a narcotic/opiate medication. She requests tramadol rx and I transmitted a prescription for short course of tramadol to [facility] pharmacy in [place]. Return precautions discussed. Work note provided. 08/19/21 23:52 I am prescribing a short course of short-acting opioid pain medication for this patient. 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 I have discussed that the opioids are for short term therapy only, and will not be refilled from the ED.
[2021-08-19] MEDS ORDERED: traMADol 50 MG TABLET PO STA (23:56)
== END 2021-08-20 00:12 | disposition home or self-care (01) ==
LOC: ED 19:19
DX: R07.89 Other chest pain (principal); R79.1 Abnormal coagulation profile
CPT/HCPCS: 36415; 71045; 71275; 80053; 83690; 84484; 85025; 85379; 93005; 96374; 99284; A9270; Q9967

== ENCOUNTER 2021-10-06 20:06 | Emergency (ER) | payer MEDICAID, OTHER ==
[2021-10-06] MEDS ORDERED: CHERRY SYRUP 10 ML UDC PO ONE (20:46)
[2021-10-06] MEDS ORDERED: DEXAMETHASONE 10 MG/ML VIAL PO STA (20:46)
--- NOTE | 2021-10-06 21:17 | ED Physician Documentation ---
History of Present Illness - Stated complaint Stated Complaint: L FOOT [id number] - Chief complaint Chief Complaint: Ext Problem - Additonal information Additional information: 45-year-old female presents emergency department for evaluation of 2 days acute left foot pain. She reports generalized foot pain and states that she has pain when standing for even 30 seconds. She endorses that the pain began after she had not worked for about a week and when she returned to work she had to stand on her tippy toes to turn the lights on and off at her place of employment. No falls or trauma. She states that she had swelling in the foot but that went away when she took her shoe off. There is no fevers or redness. 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 : None HEENT: None Psych: Bipolar disorder, ADD/ADHD Musculoskeletal: Fatigue, Chronic back pain Derm: None - Past Surgical History Past Surgical History: Yes General: Cholecystectomy, Appendectomy /ECOLOGY PROFESSOR: section, Hysterectomy HEENT: Tonsil/Adenoidectomy - Present Medications Home Medications: Ambulatory Orders Medication Instructions Recorded Confirmed QUEtiapine [SEROquel] 200 mg PO DAILY PM 12/17/12 10/25/20 Amitriptyline [Elavil] 50 mg PO HS 04/22/20 10/25/20 Sumatriptan Succinate [Imitrex] 100 mg PO DAILY PRN 07/27/20 10/25/20 Amox/Clav 875/125 [Augmentin] 1 each PO Q12H #20 tablet 08/30/20 10/25/20 HYDROcod/ACETAM 5/325 [[place] 5/325] 1 - 2 tab PO Q6H PRN #15 tablet 08/30/20 10/25/20 Ibuprofen [Motrin] 800 mg PO Q8H PRN #20 tablet 08/30/20 10/25/20 HYDROcod/ACETAM 5/325 [[place] 5/325] 1 - 2 tablet PO Q6H PRN #14 tablet 10/25/20 Ondansetron Odt [Zofran] 4 mg TL Q6H PRN #10 tablet 10/25/20 Amox/Clav 875/125 [Augmentin] 1 each PO Q12H #14 tablet 10/29/20 HYDROcod/ACETAM 5/325 [[place] 5/325] 1 - 2 tablet PO Q6H PRN #14 tablet 10/29/20 Ibuprofen [Motrin] 600 mg PO Q6H PRN #30 tab 11/05/20 traMADol [Ultram] 50 mg PO Q6H PRN #14 tablet 08/19/21 - Allergies Allergies/Adverse Reactions: Allergies Allergy/AdvReac Type Severity Reaction Status Date / Time aspirin Allergy Mild Nausea Verified 10/06/21 20:22 Latex, Natural Rubber Allergy Mild Hives Verified 10/06/21 20:22 morphine Allergy Hives Verified 10/06/21 20:22 - Social History Does the pt smoke?: No Smoking Status: Never smoker Does the pt drink ETOH?: No Does the pt have substance abuse?: No - Immunizations Immunizations are current?: Yes - POLST Patient has POLST: No PD ED PE EXPANDED - General General: Alert, No acute distress - Extremities Extremities: Left foot (No swelling redness or erythema. Full range of motion at the ankle. There is tenderness with palpation of the distal phalanges. 2+ DP pulse. Tenderness is also elicited on the sole of the foot across the plantar arch). No: Pedal edema bilateral Results - Vitals Vitals: Vital Signs - 24 hr 10/06/21 20:19 Temperature 36.3 C L Heart Rate 87 Respiratory 14 Rate Blood Pressure 137/81 H O2 Saturation 99 Oxygen O2 Source BIPAP - Rads (name of study) left foot Radiology: EMP read indepedently (No acute fracture or osseous lesion or dislocation) PD MEDICAL DECISION MAKING - ED course Complexity details: reviewed results, re-evaluated patient, considered differential, d/w patient ED course: 45-year-old female presents emergency department for evaluation of generalized left foot pain that began 2 days ago. She reports that she had not been at work for about a week and when she returned she had to stand on her tippy toes multiple times in order to turn lights on and off. Since then she has had pain at the distal foot especially near the toes. She also has pain on the bottom of the foot and has difficulty bearing weight. My interpretation of the x-ray is that there is no acute fracture or dislocation. Clinically the foot is not hot or warm or swollen. There have been no fevers. Low suspicion for occult infection. History is not suggestive of a DVT. By Wells criteria low risk. Defer ultrasound imaging. I suspect that she likely has a foot sprain from repetitive use given the need to stand on her tippy toes or plantar fasciitis. She was given a one-time dose of Decadron here in the ER. She reports an intolerance to NSAIDs and aspirin therefore I recommend continuation of Tylenol. Did advise that if symptoms not markedly better within the week she may benefit from referral to a broth mixer. Departure - Departure Disposition: 01 Home, Self Care Clinical Impression: Foot pain, left Condition: Stable Record reviewed to determine appropriate education?: Yes Instructions: Plantar Fasciitis Tx, ED Plantar Fasciitis Comments: Karen gilbert are seen today in the emergency department for pain in your left foot for 2 days. As we discussed at the bedside I suspect that the cause of your pain is an overuse injury from standing on your toes to turn the lights on and off at work. It may also be planter fasciitis which is inflammation of the large band of tendon that runs along the sole of your foot. You were given a one-time dose of a steroid today in the emergency department that I believe will help over the next 72 hours to reduce pain and inflammation. We are giving you a walking boot for comfort. I do recommend that you continue to take [id number] medication such as Tylenol or ibuprofen if you can tolerate it. If you find that your symptoms are not improving you may benefit from referral to a broth mixer. Foot doctors specialize in foot pain and may be able to help further determine the cause of your symptoms
--- NOTE | 2021-10-06 21:26 | XRAY Report ---
PROCEDURE: Foot 3 View LT INDICATIONS: left foot pain at toes TECHNIQUE: 3 views of the foot were acquired. COMPARISON: None FINDINGS: Bones: No fractures or dislocations. No suspicious bony lesions. A plantar calcaneal spur is inci dentally noted. Soft tissues: No tibiotalar joint effusion. Achilles tendon appears normal. IMPRESSION: Unremarkable plain film study, without a significant abnormality of the toes seen. Reviewed by: Kunal Santo MD on 10/06/2021 8:25 PM [facility] Approved by: Kunal Santo MD on 10/06/2021 8:25 PM [facility] Station ID: [id number]
[2021-10-06 21:42] VITALS: BP 137/72
== END 2021-10-06 21:41 | disposition home or self-care (01) ==
LOC: ED 20:06
DX: M79.672 Pain in left foot (principal)
CPT/HCPCS: 73630; 99282; 99283; A9270

== ENCOUNTER 2021-10-14 01:22 | Outpatient (CLI) | payer OTHER | END 2021-10-14 01:23 | disposition short-term general hospital (02) | LOC: EMS 01:22 | DX: R45.851 Suicidal ideations (principal); Z72.89 Other problems related to lifestyle; Z63.0 Problems in relationship with spouse or partner | CPT/HCPCS: A0425; A0429 ==

== ENCOUNTER 2021-10-26 22:28 | Emergency (ER) | payer OTHER ==
--- NOTE | 2021-10-26 22:50 | ED Physician Documentation ---
PD HPI DYSPNEA - Stated complaint Stated Complaint: DIFFICULTY BREATHING - Chief complaint Chief Complaint: Resp - Additional information Additional information: Patient is a 45-year-old female presenting to the emergency department with cou gh and shortness of breath. Reports tested positive for COVID October 16. At that time she was being evaluated at [facility] for alcohol intoxication and suicidal ideation. States since that time she has had persistent shortness of breath and cough. Reports DayQuil and NyQuil at home with minimal relief. Denies smoking and states its been greater than 13 years since she has had a cigarette. He does report a history of chronic bronchitis however since childhood as well as asthma. 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 : None HEENT: None Psych: Bipolar disorder, ADD/ADHD Musculoskeletal: Fatigue, Chronic back pain Derm: None - Past Surgical History Past Surgical History: Yes General: Cholecystectomy, Appendectomy /BASIN CLEANER: section, Hysterectomy HEENT: Tonsil/Adenoidectomy - Present Medications Home Medications: Ambulatory Orders Medication Instructions Recorded Confirmed QUEtiapine [SEROquel] 200 mg PO DAILY PM 12/17/12 10/25/20 Amitriptyline [Elavil] 50 mg PO HS 04/22/20 10/25/20 Sumatriptan Succinate [Imitrex] 100 mg PO DAILY PRN 07/27/20 10/25/20 Amox/Clav 875/125 [Augmentin] 1 each PO Q12H #20 tablet 08/30/20 10/25/20 HYDROcod/ACETAM 5/325 [[place] 5/325] 1 - 2 tab PO Q6H PRN #15 tablet 08/30/20 10/25/20 Ibuprofen [Motrin] 800 mg PO Q8H PRN #20 tablet 08/30/20 10/25/20 HYDROcod/ACETAM 5/325 [[place] 5/325] 1 - 2 tablet PO Q6H PRN #14 tablet 10/25/20 Ondansetron Odt [Zofran] 4 mg TL Q6H PRN #10 tablet 10/25/20 Amox/Clav 875/125 [Augmentin] 1 each PO Q12H #14 tablet 10/29/20 HYDROcod/ACETAM 5/325 [[place] 5/325] 1 - 2 tablet PO Q6H PRN #14 tablet 10/29/20 Ibuprofen [Motrin] 600 mg PO Q6H PRN #30 tab 11/05/20 traMADol [Ultram] 50 mg PO Q6H PRN #14 tablet 08/19/21 Albuterol Sulf [Ventolin Hfa 1 - 2 puffs INH Q4HR PRN #1 inhaler 10/27/21 Inhaler] Benzonatate [Tessalon] 200 mg PO TID PRN #30 cap 10/27/21 predniSONE [Deltasone] 40 mg PO DAILY #10 tablet 10/27/21 - Allergies Allergies/Adverse Reactions: Allergies Allergy/AdvReac Type Severity Reaction Status Date / Time aspirin Allergy Mild Nausea Verified 10/26/21 22:40 Latex, Natural Rubber Allergy Mild Hives Verified 10/26/21 22:40 morphine Allergy Hives Verified 10/26/21 22:40 - Social History Does the pt smoke?: No Smoking Status: Never smoker Does the pt drink ETOH?: No Does the pt have substance abuse?: No - Immunizations Immunizations are current?: Yes - POLST Patient has POLST: No PD ED PE NORMAL - Vitals Vital signs reviewed: Yes - General General: Other (Morbidly obese) - HEENT HEENT: Atraumatic - Neck Neck: Supple, no meningeal sign - Cardiac Cardiac: RRR, No gallop - Respiratory Respiratory: No respiratory distress, Clear bilaterally - Abdomen Abdomen: Normal bowel sounds, Non tender - Female Female : Deferred - Rectal Rectal: Deferred - Derm Derm: Normal color Results - Vitals Vitals: Vital Signs - 24 hr 10/26/21 22:37 Temperature 36.5 C Heart Rate 98 Respiratory 25 H Rate Blood Pressure 147/84 H O2 Saturation 100 Oxygen O2 Source Room air PD MEDICAL DECISION MAKING - ED course Complexity details: reviewed results, re-evaluated patient, d/w patient ED course: Patient is a 45-year-old female presenting to the emergency department with shortness of breath and cough in setting of recent diagnosis of COVID. Afebrile, hemodynamically stable. Some upper airway congestion appreciated on exam but clear aeration in all lung hernandez. Chest x-ray negative. Nothing in the patient's presentation is suggestive of acute coronary syndrome or pulmonary emboli. She was given breathing treatment as well as dose steroids and Tessalon Perle here in the emergency department. Will discharge on an ongoing course of Tessalon and low-dose prednisone as she does have history of Bronchitis. Encourage careful follow-up with primary care and/or return to the emergency department for new or worsening symptoms. Departure - Departure Disposition: 01 Home, Self Care Clinical Impression: COVID-19, Cough Instructions: ED Bronchitis Asthmatic Prescriptions: Albuterol Sulf [Ventolin Hfa Inhaler] 1 - 2 puffs INH Q4HR PRN #1 inhaler PRN Reason: Shortness Of Air/Wheezing predniSONE [Deltasone] 40 mg PO DAILY #10 tablet Benzonatate [Tessalon] 200 mg PO TID PRN #30 cap PRN Reason: Cough Comments: Thank you for allowing us to care for you today at [facility]. Your prescriptions have been sent electronically to [facility]. Your x-ray does not show any pneumonia.I will be discharging with some medications to help with your ongoing symptoms. Please be sure to drink plenty of water and get plenty of rest. Please follow-up with your primary care doctor soon as possible. If it anytime you have any new or worsening symptoms or if you would like to be reevaluated please not hesitate to return.
[2021-10-26] MEDS ORDERED: CHERRY SYRUP 10 ML UDC PO ONE (22:52)
[2021-10-26] MEDS ORDERED: DEXAMETHASONE 10 MG/ML VIAL PO STA (22:52)
--- NOTE | 2021-10-27 00:04 | XRAY Report ---
PROCEDURE: Chest 1 View X-Ray INDICATIONS: chest pain TECHNIQUE: One view of the chest was acquired. COMPARISON: 08/29/2021. FINDINGS: Surgical changes and devices: None. Lungs and pleura: No pleural effusions or pneumothorax. Lungs are clear. Mediastinum: Mediastinal contours appear normal. Heart size is normal. Bones and chest wall: No suspicious bony lesions. Overlying soft tissues appear unremarkable. IMPRESSION: 1. No acute cardiopulmonary disease. Reviewed by: Tai Khan MD on 10/27/2021 12:03 AM PDT Approved by: Tai Khan MD on 10/27/2021 12:03 AM PDT Station ID: [id number]
[2021-10-27] MEDS ORDERED: ALBUTEROL 1 PUFF INH STA (00:12)
[2021-10-27] MEDS ORDERED: ONDANSETRON ODT 4 MG TABLET TL STA (00:12)
[2021-10-27] MEDS ORDERED: BENZONATATE 100 MG CAPSULE PO STA (00:39)
[2021-10-27 00:40] VITALS: BP 162/92
== END 2021-10-27 00:46 | disposition home or self-care (01) ==
LOC: ED 22:28
DX: U07.1 COVID-19 (principal); Z87.891 Personal history of nicotine dependence
CPT/HCPCS: 71045; 94640; 99283; 99284; A9270; Q0162

== ENCOUNTER 2022-02-26 08:27 | Emergency (ER) | payer MEDICAID, OTHER ==
[2022-02-26 08:48] VITALS: BP 146/86
--- NOTE | 2022-02-26 09:00 | ED Physician Documentation ---
PD HPI URI - Stated complaint Stated Complaint: SOA/COUGH - Chief complaint Chief Complaint: Resp - History obtained from History obtained from: Patient - History of Present Illness Timing - onset: How many weeks ago (2) Timing duration: Weeks (2) Timing details: Gradual onset, Still present Associated symptoms: Fever, Chills, Nasal congestion, Productive cough (green/yellow sputum the past several days.), Dyspnea. No: Sore throat, NVD, Bilateral edema Contributing factors: COPD / asthma. No: Sick contact, Travel, Immunocompromised, Unimmunized (and had negative COVID test at home.) Improves by: MDI/nebulizer. No: Medication Worsened by: Activity Similar symptoms before: Diagnosis (she claims chronic bronchitis since teenager. Intermittent cough/exac bronchitis whole life.) Recently seen: Not recently seen Review of Systems Constitutional: reports: Chills, Myalgias, Fatigue Nose: reports: Congestion. denies: Rhinorrhea / runny nose Throat: denies: Sore throat Cardiac: reports: Chest pain / pressure (sternal area with coughing.). denies: Palpitations Respiratory: reports: Dyspnea, Cough, Wheezing GI: reports: Nausea. denies: Abdominal Pain, Vomiting, Diarrhea Skin: denies: Rash, Lesions Musculoskeletal: denies: Extremity swelling Neurologic: reports: Generalized weakness. 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 HEENT: None Psych: Bipolar disorder, ADD/ADHD Musculoskeletal: Fatigue, Chronic back pain Derm: None - Past Surgical History Past Surgical History: Yes General: Cholecystectomy, Appendectomy /LAUNDRY ROUTEMAN: section, Hysterectomy HEENT: Tonsil/Adenoidectomy - Present Medications Home Medications: Ambulatory Orders Medication Instructions Recorded Confirmed QUEtiapine [SEROquel] 200 mg PO DAILY PM 12/17/12 10/25/20 Amitriptyline [Elavil] 50 mg PO HS 04/22/20 10/25/20 Sumatriptan Succinate [Imitrex] 100 mg PO DAILY PRN 07/27/20 10/25/20 Amox/Clav 875/125 [Augmentin] 1 each PO Q12H #20 tablet 08/30/20 10/25/20 HYDROcod/ACETAM 5/325 [[place] 5/325] 1 - 2 tab PO Q6H PRN #15 tablet 08/30/20 10/25/20 Ibuprofen [Motrin] 800 mg PO Q8H PRN #20 tablet 08/30/20 10/25/20 HYDROcod/ACETAM 5/325 [[place] 5/325] 1 - 2 tablet PO Q6H PRN #14 tablet 10/25/20 Ondansetron Odt [Zofran] 4 mg TL Q6H PRN #10 tablet 10/25/20 Amox/Clav 875/125 [Augmentin] 1 each PO Q12H #14 tablet 10/29/20 HYDROcod/ACETAM 5/325 [[place] 5/325] 1 - 2 tablet PO Q6H PRN #14 tablet 10/29/20 Ibuprofen [Motrin] 600 mg PO Q6H PRN #30 tab 11/05/20 traMADol [Ultram] 50 mg PO Q6H PRN #14 tablet 08/19/21 Albuterol Sulf [Ventolin Hfa 1 - 2 puffs INH Q4HR PRN #1 inhaler 10/27/21 Inhaler] Benzonatate [Tessalon] 200 mg PO TID PRN #30 cap 10/27/21 predniSONE [Deltasone] 40 mg PO DAILY #10 tablet 10/27/21 Albuterol Sulf [Ventolin Hfa 2 - 3 puffs INH Q4HR PRN #1 each 02/26/22 Inhaler] Amoxicillin 500 mg PO TID #21 cap 02/26/22 Benzonatate [Tessalon] 100 mg PO TID PRN #20 cap 02/26/22 Fluticasone 110 Mcg [Flovent] 1 puffs INH BID 30 Days #12 gm 02/26/22 dexAMETHasone [Decadron] 4 mg PO DAILY #7 tablet 02/26/22 - Allergies Allergies/Adverse Reactions: Allergies Allergy/AdvReac Type Severity Reaction Status Date / Time aspirin Allergy Mild Nausea Verified 02/26/22 08:35 Latex, Natural Rubber Allergy Mild Hives Verified 02/26/22 08:35 morphine Allergy Hives Verified 02/26/22 08:35 - Social History Does the pt smoke?: No Smoking Status: Never smoker Does the pt drink ETOH?: No Does the pt have substance abuse?: No - Immunizations Immunizations are current?: Yes - POLST Patient has POLST: No PD ED PE NORMAL - Vitals Vital signs reviewed: Yes - General General: Alert and oriented X 3, No acute distress, Well developed/nourished - HEENT HEENT: Ears normal, Pharynx benign - Neck Neck: Supple, no meningeal sign, No adenopathy - Cardiac Cardiac: RRR, No murmur - Respiratory Respiratory: No: Clear bilaterally (general exp wheezing without retractions. Central congestions/coarse sounds. normal peripheral sounds. ) - Abdomen Abdomen: Soft, Non tender - Derm Derm: Normal color, Warm and dry - Extremities Extremities: Normal ROM s pain, No edema, No calf tenderness / cord - Neuro Neuro: Alert and oriented X 3, No motor deficit, Normal speech Results - Vitals Vitals: Vital Signs - 24 hr 02/26/22 02/26/22 08:30 08:47 Temperature 36.0 C L Heart Rate 81 75 Respiratory 16 16 Rate Blood Pressure 165/92 H 146/86 H O2 Saturation 100 97 Oxygen O2 Source Room air - Rads (name of study) chest xray Radiology: Prelim report reviewed (no acute process), See rad report PD MEDICAL DECISION MAKING - ED course Complexity details: reviewed results, considered differential (cough for 2 weeks, worsening, with history of asthma/chronic bronchitis, with pruulent sputum. Consider bacterial co-infection with the flare of asthma. ), d/w patient Departure - Departure Disposition: 01 Home, Self Care Clinical Impression: Chronic bronchitis with acute exacerbation Condition: Stable Record reviewed to determine appropriate education?: Yes Instructions: ED Bronchitis Asthmatic Follow-Up: Na Mg PA-C [Primary Care Provider] - Prescriptions: Albuterol Sulf [Ventolin Hfa Inhaler] 2 - 3 puffs INH Q4HR PRN #1 each PRN Reason: Shortness Of Air/Wheezing Amoxicillin 500 mg PO TID #21 cap dexAMETHasone [Decadron] 4 mg PO DAILY #7 tablet Fluticasone 110 Mcg [Flovent] 1 puffs INH BID 30 Days #12 gm Benzonatate [Tessalon] 100 mg PO TID PRN #20 cap PRN Reason: Cough Comments: I would suggest using your albuterol inhaler 2 to 3 puffs 4 times daily regularly for the next 7 to 10 days and then revert to as needed. Use it with a spacer. Also use Decadron steroid anti-inflammatory daily for the next week to help with bronchial inflammation. Benzonatate to help with the cough. There may be some bacterial component to this flareup and worsening. I would have you take amoxicillin 3 times daily for a week. After the 1 week of Decadron steroid, assuming you are doing better, I would then go with an oral inhaled steroid twice daily for 1 or 2 months and see if you have overall improvement. I sent your prescriptions to the [facility] pharmacy here in [place]. Forms: Activity restrictions Discharge Date/Time: 02/26/22 10:26
--- NOTE | 2022-02-26 09:56 | XRAY Report ---
PROCEDURE: Chest 1 View X-Ray INDICATIONS: cough and dyspnea 2 weeks TECHNIQUE: One view of the chest was acquired. COMPARISON: 10/26/2021 FINDINGS: Surgical changes and devices: None. Lungs and pleura: No pleural effusions or pneumothorax. Lungs are clear. Mediastinum: Mediastinal contours appear normal. Heart size is normal. Bones and chest wall: No suspicious bony lesions. Overlying soft tissues appear unremarkable. IMPRESSION: No acute process. Reviewed by: Jackie Yo MD on 02/26/2022 9:55 AM [facility] Approved by: Jackie Yo MD on 02/26/2022 9:55 AM [facility] Station ID: [id number]
[2022-02-26] MEDS ORDERED: DEXAMETHASONE 10 MG/ML VIAL PO STA (10:07)
[2022-02-26] MEDS ORDERED: CHERRY SYRUP 10 ML UDC PO ONE (10:07)
[2022-02-26] MEDS ORDERED: AMOXICILLIN 250 MG CAPSULE PO STA (10:07)
[2022-02-26] MEDS ORDERED: BENZONATATE 100 MG CAPSULE PO STA (10:07)
== END 2022-02-26 10:26 | disposition home or self-care (01) ==
LOC: ED 08:27
DX: J44.1 Chronic obstructive pulmonary disease with (acute) exacerbation (principal)
CPT/HCPCS: 71045; 99283; A9270

== ENCOUNTER 2022-04-02 09:51 | Outpatient (CLI) | payer MEDICAID | END 2022-04-02 09:52 | disposition EMS.NT | LOC: EMS 09:51 | DX: R42 Dizziness and giddiness (principal); M54.6 Pain in thoracic spine ==

== ENCOUNTER 2022-04-13 16:06 | Emergency (ER) | payer OTHER, MEDICAID ==
[2022-04-13 16:39] LABS: BASOPHILS # (AUTO) 0.1 10^3/uL (0.0-0.1); BASOPHILS % (AUTO) 0.5 %; EOSINOPHILS # (AUTO) 0.3 10^3/uL (0.0-0.7); EOSINOPHILS % (AUTO) 2.7 %; HCT - HEMATOCRIT 39.8 % (37.0-47.0); HGB - HEMOGLOBIN 12.8 g/dL (12.0-16.0); LYMPHOCYTES # (AUTO) 2.4 10^3/uL (1.5-3.5); LYMPHOCYTES % (AUTO) 20.1 %; MEAN CORPUSCULAR HEMOGLOBIN 27.9 pg (27.0-31.0); MEAN CORPUSCULAR HGB CONC 32.2 g/dL (32.0-36.0); MEAN CORPUSCULAR VOLUME 86.9 fL (81.0-99.0); MONOCYTES # (AUTO) 0.7 10^3/uL (0.0-1.0); MONOCYTES % (AUTO) 5.9 %; NEUTROPHILS # (AUTO) 8.5 10^3/uL (1.5-6.6); NEUTROPHILS % (AUTO) 70.3 %; PLT - PLATELET COUNT 288 10^3/uL (130-450); RED BLOOD COUNT 4.58 10^6/uL (4.20-5.40); RED CELL DISTRIBUTION WIDTH 14.4 % (12.0-15.0)
[2022-04-13 16:57] LABS: ALBUMIN 3.8 g/dL (3.2-5.5); ALBUMIN/GLOBULIN RATIO 1.1 (1.0-2.2); BILIRUBIN,TOTAL 0.3 mg/dL (0.2-1.0); CALCIUM 9.5 mg/dL (8.5-10.3); CREATININE 0.7 mg/dL (0.4-1.0); POTASSIUM 3.9 mmol/L (3.5-5.0); TOTAL PROTEIN 7.2 g/dL (6.7-8.2)
[2022-04-13] MEDS ORDERED: LIDOCAINE 1%-EPI 1:100000 20 ML MDV SUBQ STA (18:36)
--- NOTE | 2022-04-13 18:38 | ED Physician Documentation ---
PD HPI ABD PAIN - Stated complaint Stated Complaint: FEMALE - Chief complaint Chief Complaint: Abd Pain - History obtained from History obtained from: Patient - Additional information Additional information: 46-year-old woman presents with a chief complaint of a lump in her rectum its been there for 2 days and is very painful. It hurts worse if she tries to have a bowel movement. She has tried Preparation H without relief. She does have intermittent right lower quadrant pain that improves after a bowel movement as well. 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 : None HEENT: None Psych: Bipolar disorder, ADD/ADHD Musculoskeletal: Fatigue, Chronic back pain Derm: None - Past Surgical History Past Surgical History: Yes General: Cholecystectomy, Appendectomy /BLACKSMITH HELPER: section, Hysterectomy HEENT: Tonsil/Adenoidectomy - Present Medications Home Medications: Ambulatory Orders Medication Instructions Recorded Confirmed QUEtiapine [SEROquel] 200 mg PO DAILY PM 12/17/12 10/25/20 Amitriptyline [Elavil] 50 mg PO HS 04/22/20 10/25/20 Sumatriptan Succinate [Imitrex] 100 mg PO DAILY PRN 07/27/20 10/25/20 Amox/Clav 875/125 [Augmentin] 1 each PO Q12H #20 tablet 08/30/20 10/25/20 HYDROcod/ACETAM 5/325 [[place] 5/325] 1 - 2 tab PO Q6H PRN #15 tablet 08/30/20 10/25/20 Ibuprofen [Motrin] 800 mg PO Q8H PRN #20 tablet 08/30/20 10/25/20 HYDROcod/ACETAM 5/325 [[place] 5/325] 1 - 2 tablet PO Q6H PRN #14 tablet 10/25/20 Ondansetron Odt [Zofran] 4 mg TL Q6H PRN #10 tablet 10/25/20 Amox/Clav 875/125 [Augmentin] 1 each PO Q12H #14 tablet 10/29/20 HYDROcod/ACETAM 5/325 [[place] 5/325] 1 - 2 tablet PO Q6H PRN #14 tablet 10/29/20 Ibuprofen [Motrin] 600 mg PO Q6H PRN #30 tab 11/05/20 traMADol [Ultram] 50 mg PO Q6H PRN #14 tablet 08/19/21 Albuterol Sulf [Ventolin Hfa 1 - 2 puffs INH Q4HR PRN #1 inhaler 10/27/21 Inhaler] Benzonatate [Tessalon] 200 mg PO TID PRN #30 cap 10/27/21 predniSONE [Deltasone] 40 mg PO DAILY #10 tablet 10/27/21 Albuterol Sulf [Ventolin Hfa 2 - 3 puffs INH Q4HR PRN #1 each 02/26/22 Inhaler] Amoxicillin 500 mg PO TID #21 cap 02/26/22 Benzonatate [Tessalon] 100 mg PO TID PRN #20 cap 02/26/22 Fluticasone 110 Mcg [Flovent] 1 puffs INH BID 30 Days #12 gm 02/26/22 dexAMETHasone [Decadron] 4 mg PO DAILY #7 tablet 02/26/22 - Allergies Allergies/Adverse Reactions: Allergies Allergy/AdvReac Type Severity Reaction Status Date / Time aspirin Allergy Mild Nausea Verified 04/13/22 16:18 Latex, Natural Rubber Allergy Mild Hives Verified 04/13/22 16:18 morphine Allergy Hives Verified 04/13/22 16:18 - Social History Does the pt smoke?: No Smoking Status: Never smoker Does the pt drink ETOH?: No Does the pt have substance abuse?: No - Immunizations Immunizations are current?: Yes - POLST Patient has POLST: No PD ED PE NORMAL - Vitals Vital signs reviewed: Yes - General General: Alert and oriented X 3, No acute distress - Abdomen Abdomen: Normal bowel sounds, Soft, Other (Completely nontender including to deep palpation in the right lower quadrant) - Rectal Rectal: Other (On the left side there is a thrombosed tender hemorrhoid. Exam done with Liza CHRISTINA present and chaperoning.) - Neuro Neuro: Alert and oriented X 3, Normal speech Results - Vitals Vitals: Vital Signs - 24 hr 04/13/22 16:13 Temperature 36.1 C L Heart Rate 88 Respiratory 18 Rate Blood Pressure 150/88 H O2 Saturation 97 Oxygen O2 Source Room air - Labs Labs: Laboratory Tests 04/13/22 04/13/22 16:34 16:34 WBC 12.0 H RBC 4.58 Hgb 12.8 Hct 39.8 MCV 86.9 MCH 27.9 MCHC 32.2 RDW 14.4 Plt Count 288 MPV 10.0 Neut # (Auto) 8.5 H Lymph # (Auto) 2.4 Morrill # (Auto) 0.7 Eos # (Auto) 0.3 Baso # (Auto) 0.1 Absolute Nucleated RBC 0.00 Nucleated RBC % 0.0 Sodium 140 Potassium 3.9 Chloride 104 Carbon Dioxide 26 Anion Gap 10.0 BUN 13 Creatinine 0.7 Estimated GFR (MDRD) 90 Glucose 100 Calcium 9.5 Total Bilirubin 0.3 AST 16 ALT 14 Alkaline Phosphatase 127 H Total Protein 7.2 Albumin 3.8 Globulin 3.4 Albumin/Globulin Ratio 1.1 Lipase 33 Procedures - General procedure General procedure: After verbal informed consent the rectum was prepped with iodine and the base of the hemorrhoid was infiltrated with 1% lidocaine with epinephrine, a cruciate incision was made over the hemorrhoid with expression of the clot and pain relief. PD Medical Decision Making - ED course ED course: 46-year-old woman with thrombosed external hemorrhoid, I&D done after verbal consent with pain relief. She had lower abdominal pain but a very benign exam, close watchful waiting return precautions were discussed. Departure - Departure Disposition: 01 Home, Self Care Clinical Impression: Hemorrhoid Condition: Good Record reviewed to determine appropriate education?: Yes Instructions: ED Hemorrhoids Comments: Today we did an incision and drainage of a thrombosed left-sided external hemorrhoid. Keep it clean with shallow warm baths a few times a day. Return for new or worsening symptoms. Follow-up with your primary care physician, next available appointment.
[2022-04-13 19:16] VITALS: BP 138/78
== END 2022-04-13 19:18 | disposition home or self-care (01) ==
LOC: ED 16:06
DX: K64.5 Perianal venous thrombosis (principal)
CPT/HCPCS: 36415; 46083; 80053; 83690; 85025

== ENCOUNTER 2022-10-23 13:29 | Emergency (ER) | payer OTHER ==
[2022-10-23 13:50] VITALS: BP 155/95
[2022-10-23] MEDS ORDERED: CHERRY SYRUP 10 ML UDC PO ONE (14:17)
[2022-10-23] MEDS ORDERED: KETOROLAC 30 MG/ML VIAL IM STA (14:17)
[2022-10-23] MEDS ORDERED: DEXAMETHASONE 10 MG/ML VIAL PO STA (14:17)
--- NOTE | 2022-10-23 14:20 | ED Physician Documentation ---
PD HPI UPPER EXT INJURY - Stated complaint Stated Complaint: RT SHOULDER PX,LOSS OF MOTION - Chief complaint Chief Complaint: Ext Problem - History obtained from History obtained from: Patient - History of Present Illness Location: Right, Shoulder Type of injury: Other (overuse) Where injury occurred: Work Timing - onset: How many weeks ago (2) Timing - duration: Weeks (2) Improved by: Rest Worsened by: Moving, Palpating Associated symptoms: No: Weakness, Numbness, Tingling, Swelling, Discolored Contributing factors: No: Anticoagulated, Prior ortho surgery Similar symptoms before: Has not had sx before Recently seen: Not recently seen - Additonal information Additional information: Karen Moss is a 46-year-old female who works in the [employer] at the [employer]. She carries a lot of food up and down the stairs and repeatedly throughout the day. 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 She has had this pain in her right shoulder for about 2 weeks it is better when she has the weekend off and starts to hurt a bit right as soon as she starts working again. She has not had the symptoms previously. Cannot lift her hand above her head. Does not know of a specific injury but has exposure to work and excessive use. Review of Systems Constitutional: denies: Fever Ears: denies: Ear pain Nose: denies: Congestion Throat: denies: Sore throat Cardiac: denies: Chest pain / pressure, Palpitations Respiratory: denies: Dyspnea, Cough GI: denies: Abdominal Pain, Nausea, Vomiting, Constipation, Diarrhea : denies: Dysuria, Frequency Skin: denies: Rash Musculoskeletal: reports: Extremity pain, Joint pain. 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: section, Hysterectomy HEENT: Tonsil/Adenoidectomy - Present Medications Home Medications: Ambulatory Orders Medication Instructions Recorded Confirmed QUEtiapine [SEROquel] 200 mg PO DAILY PM 12/17/12 10/25/20 Amitriptyline [Elavil] 50 mg PO HS 04/22/20 10/25/20 Sumatriptan Succinate [Imitrex] 100 mg PO DAILY PRN 07/27/20 10/25/20 Amox/Clav 875/125 [Augmentin] 1 each PO Q12H #20 tablet 08/30/20 10/25/20 HYDROcod/ACETAM 5/325 [[place] 5/325] 1 - 2 tab PO Q6H PRN #15 tablet 08/30/20 10/25/20 Ibuprofen [Motrin] 800 mg PO Q8H PRN #20 tablet 08/30/20 10/25/20 HYDROcod/ACETAM 5/325 [[place] 5/325] 1 - 2 tablet PO Q6H PRN #14 tablet 10/25/20 Ondansetron Odt [Zofran] 4 mg TL Q6H PRN #10 tablet 10/25/20 Amox/Clav 875/125 [Augmentin] 1 each PO Q12H #14 tablet 10/29/20 HYDROcod/ACETAM 5/325 [[place] 5/325] 1 - 2 tablet PO Q6H PRN #14 tablet 10/29/20 Ibuprofen [Motrin] 600 mg PO Q6H PRN #30 tab 11/05/20 traMADol [Ultram] 50 mg PO Q6H PRN #14 tablet 08/19/21 Albuterol Sulf [Ventolin Hfa 1 - 2 puffs INH Q4HR PRN #1 inhaler 10/27/21 Inhaler] Benzonatate [Tessalon] 200 mg PO TID PRN #30 cap 10/27/21 predniSONE [Deltasone] 40 mg PO DAILY #10 tablet 10/27/21 Albuterol Sulf [Ventolin Hfa 2 - 3 puffs INH Q4HR PRN #1 each 02/26/22 Inhaler] Amoxicillin 500 mg PO TID #21 cap 02/26/22 Benzonatate [Tessalon] 100 mg PO TID PRN #20 cap 02/26/22 Fluticasone 110 Mcg [Flovent] 1 puffs INH BID 30 Days #12 gm 02/26/22 dexAMETHasone [Decadron] 4 mg PO DAILY #7 tablet 02/26/22 HYDROcod/ACETAM 5/325 [[place] 5/325] 1 - 2 tablet PO Q6H PRN #14 tablet 10/23/22 - Allergies Allergies/Adverse Reactions: Allergies Allergy/AdvReac Type Severity Reaction Status Date / Time aspirin Allergy Mild Nausea Verified 10/23/22 13:44 Latex, Natural Rubber Allergy Mild Hives Verified 10/23/22 13:44 morphine Allergy Hives Verified 10/23/22 13:44 - Social History Does the pt smoke?: No Smoking Status: Never smoker Does the pt drink ETOH?: No Does the pt have substance abuse?: No - Immunizations Immunizations are current?: Yes - POLST Patient has POLST: No PD ED PE NORMAL - Vitals Vital signs reviewed: Yes (hypertensive ) - General General: Alert and oriented X 3, No acute distress, Well developed/nourished - HEENT HEENT: Atraumatic, PERRL, EOMI - Neck Neck: Supple, no meningeal sign, No bony TTP - Respiratory Respiratory: No respiratory distress - Derm Derm: Normal color, Warm and dry, No rash - Extremities Extremities: No deformity, No edema, Other (point tenderness to the anterior deltoid over the bursa. reduced ROM secondary to pain. 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, No motor deficit, No sensory deficit, Normal speech Eye Opening: Spontaneous Motor: Obeys Commands Verbal: Oriented GCS Score: 15 - Psych Psych: Normal mood, Normal affect Results - Vitals Vitals: Vital Signs - 24 hr 10/23/22 13:41 Temperature 37.1 C Heart Rate 74 Respiratory 18 Rate Blood Pressure 155/95 H O2 Saturation 98 Oxygen O2 Source Room air - Rads (name of study) shoulder Relevant Findings:: Prelim report reviewed (Impression: Normal right shoulder.), EMP independent interpretation of test PD Medical Decision Making - ED course Complexity details: considered differential, d/w patient ED course: 46-year-old female presents with pain and reduced range of motion to the right shoulder that has been chronic and undulating relating to the amount of work that she is doing. She does have an exam consistent with the possibility of a torn rotator cuff but I am more inclined to diagnose bursitis as this fits more closely with her history and she is able to hold her arm in abduction. She is not able to bring her arm to abduction herself. She is administered dexamethasone and Toradol. Departure - Departure Disposition: 01 Home, Self Care Clinical Impression: Bursitis and tendinitis of shoulder region, Carpal tunnel syndrome of right wrist Condition: Stable Instructions: ED Tendinitis Rotator Cuff, ED Bursitis, ED Carpal Tunnel Follow-Up: Madhu Mcknight MD [Provider Admit Priv/Credential] - Prescriptions: HYDROcod/ACETAM 5/325 [[place] 5/325] 1 - 2 tablet PO Q6H PRN #14 tablet PRN Reason: Pain Comments: Karen, it looks like you have been overusing your right arm and hand at work. There is evidence of inflammation in both your wrist and in your shoulder. Decreased use will aid in the healing. We have provided a sling for comfort and it is important to remove this sling several times a day to do a range of motion exercises with your shoulder. A follow-up with the orthopedic doctor is indicated. Today we have given you some dexamethasone which may help quite a bit over the next 12 hours. I have also E scribed some [place] to the [facility] in [place]. I have given you a note for work for reduced level of activity regarding your right arm for 2 weeks. Forms: Activity restrictions
--- NOTE | 2022-10-23 15:04 | XRAY Report ---
PROCEDURE: Shoulder 3 View RT INDICATIONS: shoulder pain TECHNIQUE: 3 views of the shoulder were acquired. COMPARISON: None. FINDINGS: Bones: No fractures or dislocations. No suspicious bony lesions. Visualized ribs appear intact. Soft tissues: No suspicious soft tissue calcifications. IMPRESSION: Normal right shoulder Reviewed by: Ashkan Higgins on 10/23/2022 3:03 PM PDT Approved by: Ashkan Higgins on 10/23/2022 3:03 PM PDT Station ID: [id number]
== END 2022-10-23 15:43 | disposition home or self-care (01) ==
LOC: ED 13:29
DX: M75.51 Bursitis of right shoulder (principal); M75.91 Shoulder lesion, unspecified, right shoulder; G56.01 Carpal tunnel syndrome, right upper limb; Z79.899 Other long term (current) drug therapy
CPT/HCPCS: 73030; 96372; 99283; 99284; A9270

== ENCOUNTER 2023-02-08 12:01 | Emergency (ER) | payer OTHER ==
--- NOTE | 2023-02-08 12:20 | ED Physician Documentation ---
PD HPI LOWER EXT INJURY - Stated complaint Stated Complaint: BUMP ON RIGHT FOOT,SWELLING - Chief complaint Chief Complaint: Ext Problem - History obtained from History obtained from: Patient - Additional information Additional information: Patient is a 47-year-old female presenting for evaluation of pain and swelling to the right lateral foot that she has noticed for the past 1 week. She is unsure of any trauma but has felt a bump to the lateral aspect of the right foot that has been worsening. She states that it hurts more with walking and with wearing her shoes.She has not tried anything for her pain. Denies injuries elsewhere. She is not a diabetic. 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: section, Hysterectomy HEENT: Tonsil/Adenoidectomy - Present Medications Home Medications: Ambulatory Orders Medication Instructions Recorded Confirmed QUEtiapine [SEROquel] 200 mg PO DAILY PM 12/17/12 10/25/20 Amitriptyline [Elavil] 50 mg PO HS 04/22/20 10/25/20 Sumatriptan Succinate [Imitrex] 100 mg PO DAILY PRN 07/27/20 10/25/20 Amox/Clav 875/125 [Augmentin] 1 each PO Q12H #20 tablet 08/30/20 10/25/20 HYDROcod/ACETAM 5/325 [[place] 5/325] 1 - 2 tab PO Q6H PRN #15 tablet 08/30/20 10/25/20 Ibuprofen [Motrin] 800 mg PO Q8H PRN #20 tablet 08/30/20 10/25/20 HYDROcod/ACETAM 5/325 [[place] 5/325] 1 - 2 tablet PO Q6H PRN #14 tablet 10/25/20 Ondansetron Odt [Zofran] 4 mg TL Q6H PRN #10 tablet 10/25/20 Amox/Clav 875/125 [Augmentin] 1 each PO Q12H #14 tablet 10/29/20 HYDROcod/ACETAM 5/325 [[place] 5/325] 1 - 2 tablet PO Q6H PRN #14 tablet 10/29/20 Ibuprofen [Motrin] 600 mg PO Q6H PRN #30 tab 11/05/20 traMADol [Ultram] 50 mg PO Q6H PRN #14 tablet 08/19/21 Albuterol Sulf [Ventolin Hfa 1 - 2 puffs INH Q4HR PRN #1 inhaler 10/27/21 Inhaler] Benzonatate [Tessalon] 200 mg PO TID PRN #30 cap 10/27/21 predniSONE [Deltasone] 40 mg PO DAILY #10 tablet 10/27/21 Albuterol Sulf [Ventolin Hfa 2 - 3 puffs INH Q4HR PRN #1 each 02/26/22 Inhaler] Amoxicillin 500 mg PO TID #21 cap 02/26/22 Benzonatate [Tessalon] 100 mg PO TID PRN #20 cap 02/26/22 Fluticasone 110 Mcg [Flovent] 1 puffs INH BID 30 Days #12 gm 02/26/22 dexAMETHasone [Decadron] 4 mg PO DAILY #7 tablet 02/26/22 HYDROcod/ACETAM 5/325 [[place] 5/325] 1 - 2 tablet PO Q6H PRN #14 tablet 10/23/22 HYDROcod/ACETAM 5/325 [[place] 5/325] 1 tablet PO Q6H PRN #10 tablet 02/08/23 cephALEXin [Keflex] 500 mg PO Q6H #28 cap 02/08/23 - Allergies Allergies/Adverse Reactions: Allergies Allergy/AdvReac Type Severity Reaction Status Date / Time aspirin Allergy Mild Nausea Verified 10/23/22 13:44 Latex, Natural Rubber Allergy Mild Hives Verified 10/23/22 13:44 morphine Allergy Hives Verified 10/23/22 13:44 - Social History Does the pt smoke?: No Smoking Status: Never smoker Does the pt drink ETOH?: No Does the pt have substance abuse?: No - Immunizations Immunizations are current?: Yes - POLST Patient has POLST: No PD ED PE NORMAL - General General: Alert and oriented X 3, No acute distress, Well developed/nourished - HEENT HEENT: Atraumatic - Cardiac Cardiac: Strong equal pulses - Derm Derm: Warm and dry PD ED PE EXPANDED - Extremities PRABHAKAR LE visual: 1 - swelling, tenderness Results - Vitals Vitals: Vital Signs - 24 hr 02/08/23 02/08/23 12:05 13:05 Temperature 36.5 C Heart Rate 73 67 Respiratory 15 14 Rate Blood Pressure 172/82 H 140/84 H O2 Saturation 100 99 Oxygen O2 Source Room air PD Medical Decision Making - ED course Complexity details: reviewed results, re-evaluated patient, d/w patient ED course: Patient is a 47-year-old female presenting for evaluation of right foot pain. Unknown trauma. She does have an area of swelling and tenderness to the lateral aspect of the foot with mild overlying erythema which also extends towards the fifth toe. X-ray was obtained which I reviewed I see no fracture or dislocation. I did also evaluate the area with the bedside ultrasound to evaluate for a non-radiopaque foreign body and do not see signs of 1. Given presence of erythema will trial a course of antibiotics. Patient also counseled on need for follow-up if symptoms or not improving. Patient does not appear septic.Patient counseled on concerning symptoms to return for. Departure - Departure Disposition: 01 Home, Self Care Clinical Impression: Right foot pain Condition: Stable Instructions: ED Infec Skin Cellulitis Follow-Up: Jessica Hernandez DPM [Provider Admit Priv/Credential] - Prescriptions: cephALEXin [Keflex] 500 mg PO Q6H #28 cap HYDROcod/ACETAM 5/325 [[place] 5/325] 1 tablet PO Q6H PRN #10 tablet PRN Reason: Pain Comments: Your foot x-ray does not show a broken or out of place bone. I sent a prescription for pain medication to be community pharmacy.We will also trial a course of antibiotics to see if this helps with the redness and swelling. I did evaluate the foot with an ultrasound I do not see any signs of foreign body underneath the skin. If your symptoms are not improving I would recommend fol low-up with a learning specialist. I am prescribing a short course of narcotic pain medication for you. These are potentially dangerous and addictive medications that should be used carefully. These medications may constipate you. Take an [id number] stool softener (docusate) twice daily with plenty of water while taking these medications. If you go 24 hours without a bowel movement, take [id number] miralax, per package instructions. Do not drink or drive while taking these medications. If you received narcotic or sedating medications while in the emergency department, do not drive for 24 hours. Store this medication in a safe, secure place and out of reach of children. It is a violation of federal law to give or sell this medication to another person or to use in a manner other than prescribed. The ED will not refill narcotic prescriptions, including prescriptions lost or stolen. To dispose of unwanted medications: 1. [facility] [address] in [place] has a medication drop box. They accept prescription medications (in pill form) Saturday through Saturday 9:00 a.m. to 5:00 p.m. 2. The [facility] accepts prescription medications (in pill form only) for disposal year round. Call for more infor mation. 3. Contact the [facility] for the next [facility] sponsored prescription drug collection event. , [phone], or [phone]; Note that many narcotic pain relievers also contain Tylenol/acetaminophen. Please ensure that your total dose of acetaminophen from all sources does not exceed 3 g (3000 mg) per day. IMPRESSION: 1. No acute osseous abnormality. 2. No soft tissue swelling or radiopaque foreign body. Forms: PCP List, Activity restrictions Discharge Date/Time: 02/08/23 13:14
--- NOTE | 2023-02-08 12:42 | XRAY Report ---
PROCEDURE: Foot 3 View RT INDICATIONS: pain/bump to lateral foot TECHNIQUE: 3 views of the foot were acquired. COMPARISON: None. FINDINGS: Bones: No fractures or dislocations. Normal alignment on nonweightbearing view. Joint spaces are ma intained. No suspicious bony lesions. Soft tissues: No suspicious soft tissue calcifications or masses. No soft tissue swelling or radiopa que foreign body. Tiny plantar and Achilles calcaneal enthesophytes. IMPRESSION: 1. No acute osseous abnormality. 2. No soft tissue swelling or radiopaque foreign body. Reviewed by: Nita Fitzpatrick MD on 02/08/2023 12:40 PM PDT Approved by: Nita Fitzpatrick MD on 02/08/2023 12:40 PM PDT Station ID: [id number]
[2023-02-08 13:08] VITALS: BP 140/84; O2SAT 99
== END 2023-02-08 13:14 | disposition home or self-care (01) ==
LOC: ED 12:01
DX: M79.671 Pain in right foot (principal); Z79.899 Other long term (current) drug therapy; Z91.040 Latex allergy status
CPT/HCPCS: 99283

== ENCOUNTER 2023-02-15 17:45 | Outpatient (CLI) | payer OTHER ==
[2023-02-15 21:00] LABS: BASOPHILS % (AUTO) 0.4 %; EOSINOPHILS # (AUTO) 0.1 10^3/uL (0.0-0.7); EOSINOPHILS % (AUTO) 0.9 %; HCT - HEMATOCRIT 40.8 % (37.0-47.0); HGB - HEMOGLOBIN 13.3 g/dL (12.0-16.0); LYMPHOCYTES # (AUTO) 2.4 10^3/uL (1.5-3.5); LYMPHOCYTES % (AUTO) 23.9 %; MEAN CORPUSCULAR HEMOGLOBIN 27.4 pg (27.0-31.0); MEAN CORPUSCULAR HGB CONC 32.6 g/dL (32.0-36.0); MEAN CORPUSCULAR VOLUME 84.1 fL (81.0-99.0); MEAN PLATELET VOLUME 11.8 fL (7.9-10.8); MONOCYTES # (AUTO) 0.6 10^3/uL (0.0-1.0); MONOCYTES % (AUTO) 5.8 %; NEUTROPHILS # (AUTO) 6.8 10^3/uL (1.5-6.6); NEUTROPHILS % (AUTO) 68.7 %; PLT - PLATELET COUNT 285 10^3/uL (130-450); RED BLOOD COUNT 4.85 10^6/uL (4.20-5.40); RED CELL DISTRIBUTION WIDTH 13.2 % (12.0-15.0); WHITE BLOOD COUNT 9.8 x10^3/uL (4.8-10.8)
[2023-02-15 21:33] LABS: ALBUMIN 4.2 g/dL (3.2-5.5); ALBUMIN/GLOBULIN RATIO 1.5 (1.0-2.2); BILIRUBIN,TOTAL 0.5 mg/dL (0.2-1.0); CREATININE 0.7 mg/dL (0.6-1.3); CRP - C-REACTIVE PROTEIN 1.2 mg/dL (<0.5); POTASSIUM 3.7 mmol/L (3.5-4.5); URIC ACID 6.1 mg/dL (2.3-6.6)
== END 2023-02-15 18:00 | disposition home or self-care (01) ==
LOC: LAB.N 17:45
PROVIDERS: ATTEND Registered Nurse
DX: M79.671 Pain in right foot (principal); R22.41 Localized swelling, mass and lump, right lower limb
CPT/HCPCS: 36415; 80053; 84550; 85025; 86140

== ENCOUNTER 2023-02-21 12:23 | Emergency (ER) | payer OTHER ==
[2023-02-21 13:05] LABS: BASOPHILS # (AUTO) 0.1 10^3/uL (0.0-0.1); BASOPHILS % (AUTO) 0.3 %; EOSINOPHILS % (AUTO) 0.1 %; HCT - HEMATOCRIT 44.5 % (37.0-47.0); HGB - HEMOGLOBIN 14.2 g/dL (12.0-16.0); LYMPHOCYTES # (AUTO) 1.7 10^3/uL (1.5-3.5); LYMPHOCYTES % (AUTO) 11.5 %; MEAN CORPUSCULAR HEMOGLOBIN 27.5 pg (27.0-31.0); MEAN CORPUSCULAR HGB CONC 31.9 g/dL (32.0-36.0); MEAN CORPUSCULAR VOLUME 86.2 fL (81.0-99.0); MEAN PLATELET VOLUME 10.5 fL (7.9-10.8); MONOCYTES # (AUTO) 0.8 10^3/uL (0.0-1.0); MONOCYTES % (AUTO) 5.7 %; NEUTROPHILS % (AUTO) 82.1 %; PLT - PLATELET COUNT 352 10^3/uL (130-450); RED BLOOD COUNT 5.16 10^6/uL (4.20-5.40); RED CELL DISTRIBUTION WIDTH 13.4 % (12.0-15.0); WHITE BLOOD COUNT 14.6 x10^3/uL (4.8-10.8)
--- NOTE | 2023-02-21 13:10 | XRAY Report ---
PROCEDURE: Chest 1 View X-Ray INDICATIONS: Chest pain TECHNIQUE: One view of the chest was acquired. COMPARISON: 02/26/2022 FINDINGS: Surgical changes and devices: None. Lungs and pleura: No pleural effusions or pneumothorax. Lungs are clear. Mediastinum: Mediastinal contours appear normal. Heart size is normal. Bones and chest wall: No suspicious bony lesions. Overlying soft tissues appear unremarkable. IMPRESSION: No acute cardiopulmonary process. Reviewed by: Laura Cruz MD, PhD on 02/21/2023 1:09 PM [facility] Approved by: Laura Cruz MD, PhD on 02/21/2023 1:09 PM [facility] Station ID: [id number]
[2023-02-21 13:23] LABS: ALBUMIN 4.4 g/dL (3.2-5.5); ALBUMIN/GLOBULIN RATIO 1.5 (1.0-2.2); BILIRUBIN,TOTAL 0.4 mg/dL (0.2-1.0); CALCIUM 9.6 mg/dL (8.5-10.3); CREATININE 0.8 mg/dL (0.6-1.3); POTASSIUM 4.3 mmol/L (3.5-4.5); TOTAL PROTEIN 7.4 g/dL (6.4-8.9)
[2023-02-21 13:35] LABS: THYROID STIMULATING HORMONE 2.46 uIU/mL (0.34-5.60)
--- NOTE | 2023-02-21 14:07 | ED Physician Documentation ---
History of Present Illness - Stated complaint Stated Complaint: CHEST PX - Chief complaint Chief Complaint: Cardiac - History obtained from History obtained from: Patient - History of Present Illness Timing: Today Pain level max: 1 Pain level now: 1 - Additonal information Additional information: Patient is a 47-year-old female who presents to the emergency department complaining of palpitations earlier today. This occurred about 4 hours prior to arrival. She states that she felt a tightness in her chest, checked her smart watch and notes that her pulse rate was approximately 180 bpm. This lasted for about 10 minutes and all symptoms have now resolved. She states that this has occurred before but never lasted this long. She went to the walk-in clinic and was sent here for evaluation. Patient currently asymptomatic. No fevers. No chills. No stimulants. No caffeine or energy drinks. No family history of cardiac arrhythmias that she is aware of. 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 : None HEENT: None Psych: Bipolar disorder, ADD/ADHD Musculoskeletal: Fatigue, Chronic back pain Derm: None - Past Surgical History Past Surgical History: Yes General: Cholecystectomy, Appendectomy /PILOT CONTROL OPERATOR HELPER: section, Hysterectomy HEENT: Tonsil/Adenoidectomy - Present Medications Home Medications: Ambulatory Orders Medication Instructions Recorded Confirmed QUEtiapine [SEROquel] 200 mg PO DAILY PM 12/17/12 10/25/20 Amitriptyline [Elavil] 50 mg PO HS 04/22/20 10/25/20 Sumatriptan Succinate [Imitrex] 100 mg PO DAILY PRN 07/27/20 10/25/20 Amox/Clav 875/125 [Augmentin] 1 each PO Q12H #20 tablet 08/30/20 10/25/20 HYDROcod/ACETAM 5/325 [[place] 5/325] 1 - 2 tab PO Q6H PRN #15 tablet 08/30/20 10/25/20 Ibuprofen [Motrin] 800 mg PO Q8H PRN #20 tablet 08/30/20 10/25/20 HYDROcod/ACETAM 5/325 [[place] 5/325] 1 - 2 tablet PO Q6H PRN #14 tablet 10/25/20 Ondansetron Odt [Zofran] 4 mg TL Q6H PRN #10 tablet 10/25/20 Amox/Clav 875/125 [Augmentin] 1 each PO Q12H #14 tablet 10/29/20 HYDROcod/ACETAM 5/325 [[place] 5/325] 1 - 2 tablet PO Q6H PRN #14 tablet 10/29/20 Ibuprofen [Motrin] 600 mg PO Q6H PRN #30 tab 11/05/20 traMADol [Ultram] 50 mg PO Q6H PRN #14 tablet 08/19/21 Albuterol Sulf [Ventolin Hfa 1 - 2 puffs INH Q4HR PRN #1 inhaler 10/27/21 Inhaler] Benzonatate [Tessalon] 200 mg PO TID PRN #30 cap 10/27/21 predniSONE [Deltasone] 40 mg PO DAILY #10 tablet 10/27/21 Albuterol Sulf [Ventolin Hfa 2 - 3 puffs INH Q4HR PRN #1 each 02/26/22 Inhaler] Amoxicillin 500 mg PO TID #21 cap 02/26/22 Benzonatate [Tessalon] 100 mg PO TID PRN #20 cap 02/26/22 Fluticasone 110 Mcg [Flovent] 1 puffs INH BID 30 Days #12 gm 02/26/22 dexAMETHasone [Decadron] 4 mg PO DAILY #7 tablet 02/26/22 HYDROcod/ACETAM 5/325 [[place] 5/325] 1 - 2 tablet PO Q6H PRN #14 tablet 10/23/22 HYDROcod/ACETAM 5/325 [[place] 5/325] 1 tablet PO Q6H PRN #10 tablet 02/08/23 cephALEXin [Keflex] 500 mg PO Q6H #28 cap 02/08/23 - Allergies Allergies/Adverse Reactions: Allergies Allergy/AdvReac Type Severity Reaction Status Date / Time aspirin Allergy Mild Nausea Verified 02/21/23 12:27 Latex, Natural Rubber Allergy Mild Hives Verified 02/21/23 12:27 morphine Allergy Hives Verified 02/21/23 12:27 - Social History Does the pt smoke?: No Smoking Status: Never smoker Does the pt drink ETOH?: No Does the pt have substance abuse?: No - Immunizations Immunizations are current?: Yes - POLST Patient has POLST: No PD ED PE NORMAL - Vitals Vital signs reviewed: Yes - General General: Alert and oriented X 3, No acute distress - HEENT HEENT: PERRL, Moist mucous membranes - Neck Neck: Supple, no meningeal sign - Cardiac Cardiac: RRR, No murmur, Strong equal pulses - Respiratory Respiratory: No respiratory distress, Clear bilaterally - Abdomen Abdomen: Soft, Non tender, Non distended - Back Back: No spinal TTP - Derm Derm: Warm and dry - Extremities Extremities: No edema, No calf tenderness / cord - Neuro Neuro: Alert and oriented X 3 - Psych Psych: Normal mood, Normal affect Results - Vitals Vitals: Vital Signs - 24 hr 02/21/23 02/21/23 12:27 14:18 Temperature 36.5 C Heart Rate 60 70 Respiratory 16 19 Rate Blood Pressure 150/100 H 120/63 O2 Saturation 97 96 Oxygen O2 Source Room air - EKG (time done) 1235 EKG releavant findings:: EKG personally interpreted by author of this note. Relevant findings are: Rate: Rate (enter#) (65) Rhythm: NSR [place]: Normal Intervals: Normal OR QRS: Normal Ischemia: Normal ST segments - Labs Labs: Laboratory Tests 02/21/23 02/21/23 02/21/23 12:58 12:58 12:58 WBC 14.6 H RBC 5.16 Hgb 14.2 Hct 44.5 MCV 86.2 MCH 27.5 MCHC 31.9 L RDW 13.4 Plt Count 352 MPV 10.5 Neut # (Auto) 12.0 H Lymph # (Auto) 1.7 [facility] # (Auto) 0.8 Eos # (Auto) 0.0 Baso # (Auto) 0.1 Absolute Nucleated RBC 0.00 Nucleated RBC % 0.0 Sodium 139 Potassium 4.3 Chloride 103 Carbon Dioxide 30 Anion Gap 6.0 BUN 18 Creatinine 0.8 Estimated GFR (MDRD) 77 L Glucose 100 Calcium 9.6 Magnesium 2.0 Total Bilirubin 0.4 AST 8 L ALT 9 L Alkaline Phosphatase 112 Troponin I High Sens 4.0 Total Protein 7.4 Albumin 4.4 Globulin 3.0 Albumin/Globulin Ratio 1.5 Lipase 18 TSH 2.46 - Rads (name of study) Chest x-ray Relevant Findings:: Final report received, See rad report PD Medical Decision Making - ED course Complexity details: reviewed results, re-evaluated patient, considered differential (No ST elevation SC, no aortic dissection, no PE, no tension pne umothorax, no aortic aneurysm), d/w patient ED course: Patient with palpitations today and during the palpitations she did have some chest tightness. All symptoms been resolved for several hours. Negative troponin. No acute findings on EKG, laboratory testing or telemetry. Patient is asymptomatic here. Unclear etiology of her symptoms, recommend a Holter monitor/Zio patch for home. Patient will follow-up with her PCP for further care and return if she worsens. Patient counseled regarding signs and symptoms for which I believe and urgent re-evaluation would be necessary. Patient with good understanding of and agreement to plan and is comfortable going home at this time This document was made in part using voice recognition software. While efforts are made to proofread this document, sound alike and grammatical errors may occur. Departure - Departure Disposition: 01 Home, Self Care Clinical Impression: Palpitations Chest pain Qualifiers: Chest pain type: unspecified Qualified Code(s): R07.9 - Chest pain, unspecified Condition: Good Instructions: ED Palpitations Follow-Up: your,doctor in 1 week [Other] Comments: Your testing today does not show any acute abnormalities. Please follow-up with your doctor for further care. Please return if you worsen. It is recommended that you have a heart monitor or Zio patch to evaluate for any potential arrhythmias. As we discussed you can also buy a small ECG machine for home that can read your ECG off of your fingers. Forms: PCP List Discharge Date/Time: 02/21/23 14:18
[2023-02-21 14:22] VITALS: BP 120/63; O2SAT 96
== END 2023-02-21 14:18 | disposition home or self-care (01) ==
LOC: ED 12:23
DX: R00.2 Palpitations (principal); R07.89 Other chest pain; Z79.899 Other long term (current) drug therapy
CPT/HCPCS: 36415; 80053; 83690; 83735; 84443; 84484; 85025; 93005; 99283; 99284

== ENCOUNTER 2023-04-12 10:30 | Emergency (ER) | payer OTHER ==
--- NOTE | 2023-04-12 11:32 | ED Physician Documentation ---
PD HPI URI - Stated complaint Stated Complaint: FEVER/BODY ACHES/SHIVERING - Chief complaint Chief Complaint: Resp - History obtained from History obtained from: Patient - History of Present Illness Timing - onset: How many days ago (2) Timing duration: Days (2) Timing details: Abrupt onset, Still present Associated symptoms: Fever, Chills, Sore throat, Swollen nodes, Dry cough (with hoarse/wheezing sounds.), Dyspnea. No: NVD, Bilateral edema Contributing factors: COPD / asthma (uses her Albuterol infrequently as makes her feel jittery and fast heart rate.). No: Sick contact, Travel, Immunocompromised Recently seen: Not recently seen Review of Systems Constitutional: reports: Fever, Chills, Myalgias Nose: reports: Congestion Throat: reports: Sore throat Cardiac: denies: Chest pain / pressure Respiratory: reports: Dyspnea, Cough, Wheezing GI: reports: Nausea. 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 : None HEENT: None Psych: Bipolar disorder, ADD/ADHD Musculoskeletal: Fatigue, Chronic back pain Derm: None - Past Surgical History Past Surgical History: Yes General: Cholecystectomy, Appendectomy /MULTIMEDIA SPECIALIST: section, Hysterectomy HEENT: Tonsil/Adenoidectomy - Present Medications Home Medications: Ambulatory Orders Medication Instructions Recorded Confirmed QUEtiapine [SEROquel] 200 mg PO DAILY PM 12/17/12 10/25/20 Amitriptyline [Elavil] 50 mg PO HS 04/22/20 10/25/20 Sumatriptan Succinate [Imitrex] 100 mg PO DAILY PRN 07/27/20 10/25/20 Amox/Clav 875/125 [Augmentin] 1 each PO Q12H #20 tablet 08/30/20 10/25/20 HYDROcod/ACETAM 5/325 [[place] 5/325] 1 - 2 tab PO Q6H PRN #15 tablet 08/30/20 10/25/20 Ibuprofen [Motrin] 800 mg PO Q8H PRN #20 tablet 08/30/20 10/25/20 HYDROcod/ACETAM 5/325 [[place] 5/325] 1 - 2 tablet PO Q6H PRN #14 tablet 10/25/20 Ondansetron Odt [Zofran] 4 mg TL Q6H PRN #10 tablet 10/25/20 Amox/Clav 875/125 [Augmentin] 1 each PO Q12H #14 tablet 10/29/20 HYDROcod/ACETAM 5/325 [[place] 5/325] 1 - 2 tablet PO Q6H PRN #14 tablet 10/29/20 Ibuprofen [Motrin] 600 mg PO Q6H PRN #30 tab 11/05/20 traMADol [Ultram] 50 mg PO Q6H PRN #14 tablet 08/19/21 Albuterol Sulf [Ventolin Hfa 1 - 2 puffs INH Q4HR PRN #1 inhaler 10/27/21 Inhaler] Benzonatate [Tessalon] 200 mg PO TID PRN #30 cap 10/27/21 predniSONE [Deltasone] 40 mg PO DAILY #10 tablet 10/27/21 Albuterol Sulf [Ventolin Hfa 2 - 3 puffs INH Q4HR PRN #1 each 02/26/22 Inhaler] Amoxicillin 500 mg PO TID #21 cap 02/26/22 Benzonatate [Tessalon] 100 mg PO TID PRN #20 cap 02/26/22 Fluticasone 110 Mcg [Flovent] 1 puffs INH BID 30 Days #12 gm 02/26/22 dexAMETHasone [Decadron] 4 mg PO DAILY #7 tablet 02/26/22 HYDROcod/ACETAM 5/325 [[place] 5/325] 1 - 2 tablet PO Q6H PRN #14 tablet 10/23/22 HYDROcod/ACETAM 5/325 [[place] 5/325] 1 tablet PO Q6H PRN #10 tablet 02/08/23 cephALEXin [Keflex] 500 mg PO Q6H #28 cap 02/08/23 HYDROcod/ACETAM 5/325 [[place] 5/325] 1 ea PO Q6H PRN #14 tablet 04/12/23 Levalbuterol [Xopenex] 2 puffs INH Q4-6H #15 gm 04/12/23 Lidocaine Viscous 2% [Xylocaine 5 ml PO Q4H PRN #100 ml 04/12/23 Viscous 2%] Ondansetron Odt [Zofran] 4 mg TL Q6H PRN #10 tablet 04/12/23 dexAMETHasone [Decadron] 4 mg PO DAILY #5 tablet 04/12/23 - Allergies Allergies/Adverse Reactions: Allergies Allergy/AdvReac Type Severity Reaction Status Date / Time aspirin Allergy Mild Nausea Verified 04/12/23 10:56 Latex, Natural Rubber Allergy Mild Hives Verified 04/12/23 10:56 morphine Allergy Hives Verified 04/12/23 10:56 - Social History Does the pt smoke?: No Smoking Status: Never smoker Does the pt drink ETOH?: No Does the pt have substance abuse?: No - Immunizations Immunizations are current?: Yes - POLST Patient has POLST: No PD ED PE NORMAL - Vitals Vital signs reviewed: Yes - General General: Alert and oriented X 3, Well developed/nourished - HEENT HEENT: Ears normal, Moist mucous membranes, Pharynx benign - Neck Neck: Supple, no meningeal sign, No adenopathy - Cardiac Cardiac: RRR, No murmur - Respiratory Respiratory: No respiratory distress. No: Clear bilaterally (at rest, has some stridorous sounds inhaling but that stops when she is talking or relaxing b reathing. Exp wheezing noted difusely as well. ) - Abdomen Abdomen: Soft, Non tender - Derm Derm: Normal color, Warm and dry - Extremities Extremities: No edema, No calf tenderness / cord - Neuro Neuro: Alert and oriented X 3, No motor deficit, Normal speech Results - Vitals Vitals: Vital Signs - 24 hr 04/12/23 04/12/23 04/12/23 10:51 12:40 13:38 Temperature 37.3 C 36.9 C Heart Rate 80 88 79 Respiratory 18 20 18 Rate Blood Pressure 150/77 H 143/65 H O2 Saturation 98 95 Oxygen O2 Source Room air - Labs Labs: Laboratory Tests 04/12/23 11:32 Nasal Adenovirus (PCR) NOT DETECTED Nasal B. parapertussis DNA (PCR) NOT DETECTED Nasal Coronavir 229E PCR NOT DETECTED Nasal Coronavir HKU1 PCR NOT DETECTED Nasal Coronavir NL63 PCR NOT DETECTED Nasal Coronavir OC43 PCR NOT DETECTED Nasal Enterovir/Rhinovir PCR NOT DETECTED Nasal Influenza B PCR NOT DETECTED Nasal Influenza A PCR NOT DETECTED Nasal Parainfluen 1 PCR NOT DETECTED Nasal Parainfluen 2 PCR NOT DETECTED Nasal Parainfluen 3 PCR NOT DETECTED Nasal Parainfluen 4 PCR NOT DETECTED Nasal RSV (PCR) NOT DETECTED Nasal B.pertussis DNA PCR NOT DETECTED Nasal C.pneumoniae (PCR) NOT DETECTED Junito Human Metapneumo PCR NOT DETECTED Nasal M.pneumoniae (PCR) NOT DETECTED Nasal SARS-CoV-2 (PCR) DETECTED A - Rads (name of study) chest xray Relevant Findings:: Prelim report reviewed (no acute cardiopulmonary process), EMP independent interpretation of test (no infiltrates) PD Medical Decision Making - ED course Complexity details: reviewed results (has COVID. This is reasonable c/w her symptoms, along with exac of asthma. ), re-evaluated patient (feelingimproved br eathing and less wheeze/stridor sounding after Xopenex and not having the fast heart rate/jittery that she gets from albuterol, which had been making her avoid it more. ), considered differential (seems likely viral illness. History of asthma that is exacerbated by current illness. Has stridorous sounds breathing that dissipate when she is talking/answering questions. ), d/w patient Departure - Departure Disposition: 01 Home, Self Care Clinical Impression: Exacerbation of asthma, Acute bronchitis due to COVID-19 virus Condition: Stable Record reviewed to determine appropriate education?: Yes Instructions: ED URI Viral Prescriptions: dexAMETHasone [Decadron] 4 mg PO DAILY #5 tablet HYDROcod/ACETAM 5/325 [[place] 5/325] 1 ea PO Q6H PRN #14 tablet PRN Reason: Pain Levalbuterol [Xopenex] 2 puffs INH Q4-6H #15 gm Lidocaine Viscous 2% [Xylocaine Viscous 2%] 5 ml PO Q4H PRN #100 ml PRN Reason: Pain Ondansetron Odt [Zofran] 4 mg TL Q6H PRN #10 tablet PRN Reason: Nausea / Vomiting Comments: Your respiratory viral panel is positive for COVID. Negative for RSV and flu. Your chest x-ray shows some mild patchiness in the lungs suggesting some involvement there as well as your clinical bronchitis symptoms. We will treat this with your inhaler. The leave albuterol/Xopenex seems to not be causing as much side effects as your regular albuterol. I prescribed that for you to use 2 puffs 4 times daily to help with breathing. Will also add steroid Decadron daily for 5 more days to help with bronchial inflammation as the infection is precipitating your asthma. This try to stay well-hydrated. Ondansetron if needed for nausea. I prescribed hydrocodone/acetaminophen to help with both body pains and aches as well as to help as a better cough suppressant. You can use yttc-orf-musoewy cough medicines as well. For your sore throat, you can use liquid Benadryl in combination with the lidocaine that we had given you here that did seem to help with the sore throat. This hopefully will improve your fluid intake. I would anticipate 5 to 7 days of illness with this. I wrote a work note for 5 more days. I sent your prescriptions to the [facility] pharmacy. Return if not improving well over the next few days with regard to the breathing in particular and return if worse. I am prescribing a short course of narcotic pain medication for you. These are potentially dangerous and addictive medications that should be used carefully. These medications may constipate you. Take an naqr-eqg-[id number] stool softener such as docusate twice daily with plenty of water while taking these medications. If you go 24 hours without a bowel movement, take [id number] MiraLAX, per package instructions. Do not drink or drive while taking these medications. If you received narcotic or sedating medications while in the emergency department do not drive for 24 hours. Store this medication in a safe, secure place and out of reach of children. It is a violation of federal law to give or sell this medication to another person or to use in a manner other than prescribed. The ED will not refill narcotic prescriptions, including prescriptions lost or stolen. You can dispose of unwanted medications at the [facility]'s office or at several pharmacies such as [facility]. Forms: PCP List, Activity restrictions Discharge Date/Time: 04/12/23 13:48
--- NOTE | 2023-04-12 11:34 | XRAY Report ---
PROCEDURE: Chest 1V INDICATIONS: productive cough, soa, wheeze TECHNIQUE: One view of the chest was acquired. COMPARISON: Chest radiograph on February 21, 2023. FINDINGS: Surgical changes and devices: None. Lungs and pleura: No pleural effusions or pneumothorax. Lungs are clear. Mediastinum: Mediastinal contours appear normal. Heart size is normal. Bones and chest wall: No suspicious bony lesions. Overlying soft tissues appear unremarkable. Génesis cystectomy clips. IMPRESSION: No acute cardiopulmonary process. Reviewed by: Nita Fitzpatrick MD on 04/12/2023 11:33 AM [facility] Approved by: Nita Fitzpatrick MD on 04/12/2023 11:33 AM PST Station ID: [id number]
[2023-04-12] MEDS ORDERED: LEVALBUTEROL 1.25 MG/3 ML NEB INH STA (12:12)
[2023-04-12] MEDS ORDERED: diphenhydrAMINE ELIXIR 25 MG/10 ML UDC PO STA (12:12)
[2023-04-12] MEDS ORDERED: LIDOCAINE VISCOUS 2% 15 ML ORAL SYRINGE MM STA (12:12)
[2023-04-12] MEDS ORDERED: dexAMETHasone 4 MG TABLET PO STA (12:12)
[2023-04-12] MEDS ORDERED: ACETAMINOPHEN 500 MG TABLET PO STA (12:13)
[2023-04-12 12:52] LABS: B. PARAPERTUSSIS- RESP PCR PAN NOT DETECTED; B. PERTUSSIS- RESP PCR PANEL NOT DETECTED; C. PNEUMONIAE- RESP PCR PANEL NOT DETECTED; CORONAVIRUS 229E-RESP PCR NOT DETECTED; CORONAVIRUS HKU1-RESP PCR NOT DETECTED; CORONAVIRUS NL63-RESP PCR NOT DETECTED; CORONAVIRUS OC43-RESP PCR NOT DETECTED; HUMAN METAPNEUMOVIRUS NOT DETECTED; INFLUENZA A- RESP PCR PANEL NOT DETECTED; INFLUENZA B - RESP PCR PANEL NOT DETECTED; M. PNEUMONIAE- RESP PCR PANEL NOT DETECTED; PARAINFLUENZA VIRUS 1 NOT DETECTED; PARAINFLUENZA VIRUS 2 NOT DETECTED; PARAINFLUENZA VIRUS 3 NOT DETECTED; PARAINFLUENZA VIRUS 4 NOT DETECTED; RHINOVIRUS/ENTEROVIRUS NOT DETECTED; RSV- RESP PCR PANEL NOT DETECTED
[2023-04-12 12:59] LABS: SARS-CoV-2 -RESP PCR PANEL DETECTED
[2023-04-12 13:47] VITALS: BP 143/65; O2SAT 95
== END 2023-04-12 13:48 | disposition home or self-care (01) ==
LOC: ED 10:30
DX: U07.1 COVID-19 (principal); J20.8 Acute bronchitis due to other specified organisms; J45.901 Unspecified asthma with (acute) exacerbation; R50.9 Fever, unspecified; J02.9 Acute pharyngitis, unspecified; R05.9 Cough, unspecified; R06.00 Dyspnea, unspecified; R59.0 Localized enlarged lymph nodes; M79.10 Myalgia, unspecified site; R09.81 Nasal congestion; R11.0 Nausea
CPT/HCPCS: 71045; 87633; 94640; 99284; A9270; J8540

== ENCOUNTER 2023-11-19 18:38 | Emergency (ER) | payer OTHER ==
[2023-11-19 18:57] VITALS: BP 150/90; O2SAT 99
--- NOTE | 2023-11-19 19:41 | ED Physician Documentation ---
History of Present Illness - Stated complaint Stated Complaint: R SHOULDER PX - Chief complaint Chief Complaint: Ext Problem - Additonal information Additional information: 47-year-old female presents with right shoulder pain. She has had longstanding shoulder issues with pain in discomfort at times, without a specific diagnosis. Last week she was moving some boxes and may have lifted more than normal. 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 Pain is in the right scapula, reproducible with palpation and range of motion, radiates down her arm. Sometimes up into her neck as well. It sometimes causes her migraine headaches. She has taken ibuprofen without relief. She denies any falls or trauma to the area. She states she has been working a lot recently and has not had a day off. 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 : None HEENT: None Psych: Depression, Bipolar disorder, ADD/ADHD, Other Musculoskeletal: Fatigue, Chronic back pain Derm: None - Past Surgical History Past Surgical History: Yes General: Cholecystectomy, Appendectomy /JAVA TECH LEAD: section, Hysterectomy HEENT: Tonsil/Adenoidectomy - Present Medications Home Medications: Ambulatory Orders Medication Instructions Recorded Confirmed QUEtiapine [SEROquel] 200 mg PO DAILY PM 12/17/12 08/04/23 Amitriptyline [Elavil] 50 mg PO HS 04/22/20 08/04/23 Albuterol Sulf [Ventolin Hfa 2 - 3 puffs INH Q4HR PRN #1 each 02/26/22 08/04/23 Inhaler] predniSONE [Deltasone] 10 mg PO [id number] #42 tab 08/04/23 Cyclobenzaprine [Flexeril] 10 mg PO TID PRN #20 tablet 11/19/23 Ibuprofen [Motrin] 600 mg PO Q6H PRN #30 tab 11/19/23 - Allergies Allergies/Adverse Reactions: Allergies Allergy/AdvReac Type Severity Reaction Status Date / Time aspirin Allergy Mild Nausea Verified 11/19/23 18:48 Latex, Natural Rubber Allergy Mild Hives Verified 11/19/23 18:48 morphine Allergy Hives Verified 11/19/23 18:48 - Social History Does the pt smoke?: No Smoking Status: Never smoker Does the pt drink ETOH?: No Does the pt have substance abuse?: No - Immunizations Immunizations are current?: Yes - POLST Patient has POLST: No PD ED PE NORMAL - Vitals Vital signs reviewed: Yes - General General: Alert and oriented X 3, No acute distress, Well developed/nourished - HEENT HEENT: Atraumatic, Moist mucous membranes - Neck Neck: Supple, no meningeal sign, No bony TTP, No adenopathy - Cardiac Cardiac: RRR, No murmur - Respiratory Respiratory: No respiratory distress, Clear bilaterally - Derm Derm: Normal color, Warm and dry, No rash - Extremities Extremities: No deformity, Other (No obvious swelling or deformity. There is tenderness of the trapezius and scalene muscles of the right shoulder and neck in to the right scapula. No obvious injury however. Pain with external rotation and reaching overhead). No: No tenderness to palpate, Normal ROM s pain Results - Vitals Vitals: Vital Signs - 24 hr 11/19/23 18:48 Temperature 36.8 C Heart Rate 79 Respiratory 16 Rate Blood Pressure 150/90 H O2 Saturation 99 Oxygen O2 Source Room air - Rads (name of study) No standard instances Relevant Findings:: EMP independent interpretation of test PD Medical Decision Making - ED course Complexity details: reviewed results, re-evaluated patient, considered differential, d/w patient ED course: 47-year-old female presents with right shoulder pain without trauma. 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 She also lifted some boxes recently. At a was concern for possible muscle strain or rotator cuff tear, or repetitive motion injury, less likely dislocation or fracture given atraumatic. X-ray shows degenerative changes at the AC joint but no other acute findings. Patient advised that treatment was largely supportive, recommended ibuprofen, Tylenol, have given her muscle relaxers will, discussed recommendations for follow-up with PT and primary care provider. As she requested a sling, I cautioned her on the risk of frozen shoulder but advised she can use a sling as long as she takes her shoulder out and does range of motion exercises at least 4 times a day, and follow-up with primary doctor to determine if MRI is necessary. Patient given a dose of IM Toradol here and discharged home in stable condition. Departure - Departure Disposition: Home, Self Care Clinical Impression: Right shoulder pain Qualifiers: Chronicity: acute Qualified Code(s): M25.511 - Pain in right shoulder Condition: Good Instructions: Repetitive Motion Injury Shoulder Prescriptions: Cyclobenzaprine [Flexeril] 10 mg PO TID PRN #20 tablet PRN Reason: Spasms Ibuprofen [Motrin] 600 mg PO Q6H PRN #30 tab PRN Reason: Pain Comments: Please follow-up with your primary doctor if no improvement, you may need to eventually have physical therapy or MRI of your shoulder for more information. In the meantime, please take ibuprofen, Tylenol and I have given you muscle laxer to use as needed. You requested a shoulder sling which I think is fine to use but you will need to take your arm out of the shoulder and do light range of motion exercises multiple times a day to avoid frozen shoulder. Forms: PCP List, Activity restrictions
--- NOTE | 2023-11-19 20:03 | XRAY Report ---
PROCEDURE: Shoulder 2+V RT INDICATIONS: pain TECHNIQUE: 3 views of the shoulder were acquired. COMPARISON: 10/23/2022 FINDINGS: Bones: No fractures or dislocations. No suspicious bony lesions. Visualized ribs appear intact. De generative changes of the right acromioclavicular joint. Coracoclavicular and acromioclavicular inter vals are maintained. Soft tissues: No suspicious soft tissue calcifications. The visualized lungs are within normal limi ts. IMPRESSION: No acute bony abnormality. Degenerative changes of the right acromioclavicular joint. Reviewed by: Mauri Alcantar MD on 11/19/2023 8:01 PM PDT Approved by: Mauri Alcantar MD on 11/19/2023 8:01 PM PDT Station ID: [id number]
[2023-11-19] MEDS: KETOROLAC 30 MG/ML VIAL IM STA (20:19)
== END 2023-11-19 20:32 | disposition home or self-care (01) ==
LOC: ED 18:38
DX: M25.511 Pain in right shoulder (principal); R51.9 Headache, unspecified
CPT/HCPCS: 96372; 99283